=== PATIENT | male | born 1955 | race Caucasian/White ===

== ENCOUNTER 2017-04-20 20:17 | Emergency (ER) | payer MEDICARE, MEDICAID ==
[2017-04-20] MEDS ORDERED: Cephalexin CAP* 500 MG PO ONE (20:53)
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
[2017-04-20 21:22] VITALS: BP 118/83
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
== END 2017-04-20 21:45 | disposition home or self-care (01) ==
LOC: UCEAST 20:17
DX: S50.312A Abrasion of left elbow, initial encounter (principal); S46.812A Strain of other muscles, fascia and tendons at shoulder and upper arm level, left arm, initial encounter; V27.0XXA Motorcycle driver injured in collision with fixed or stationary object in nontraffic accident, initial encounter; Y93.9 Activity, unspecified; Y92.9 Unspecified place or not applicable; K40.90 Unilateral inguinal hernia, without obstruction or gangrene, not specified as recurrent; Z88.5 Allergy status to narcotic agent; Z88.1 Allergy status to other antibiotic agents; Z91.040 Latex allergy status
CPT/HCPCS: 99212; A9270-GY; G0463

== ENCOUNTER 2017-05-13 15:45 | Emergency (ER) | payer MEDICARE, MEDICAID ==
[2017-05-13] MEDS ORDERED: Silver Nitrate/Potassium Nitr* 1 EA STICK TOPICAL ONE (17:56)
--- NOTE | 2017-05-13 17:56 | UC ---
Skin Complaint HPI - HPI Summary HPI Summary: SKIN TAG ON LEFT LOWER BACK THAT HAS BEEN INFLAMED AND IRRITATED PAST FEW MONTHS. PT HAS TRIED UNSUCCESSFULLY TO FREEZE IT OFF WITH OTC WART REMOVER. STATES HE WOULD HAVE CUT IT OFF HIMSELF BUT CAN'T REACH IT. NO DRAINAGE. NO FEVER. - History of Current Complaint Chief Complaint: [facility] Time Seen by Provider: 05/13/17 17:39 Stated Complaint: INFLAMED MOLE Hx Obtained From: Patient Onset/Duration: Gradual Onset, Lasting Weeks, Still Present Timing: Constant Onset Severity: Moderate Current Severity: Moderate Pain Intensity: 0 Pain Scale Used: 0-10 Numeric Location: Discrete - LEFT LOW BACK Aggravating: Touch Alleviating: Nothing Associated Signs & Symptoms: Positive: Negative - Allergy/Home Medications Allergies/Adverse Reactions: Allergies Allergy/AdvReac Type Severity Reaction Status Date / Time Iodine Allergy Severe anaphylaxis Verified 05/04/17 08:59 Latex Allergy Severe Itching Verified 05/04/17 08:59 Codeine Allergy Mild Hives Verified 05/04/17 08:59 Erythromycin Allergy Mild Hives Verified 05/04/17 08:59 Morphine AdvReac Mild Nausea Verified 05/04/17 08:59 Review of Systems Constitutional: Negative Skin: Other - IRRITATED SKIN TAG Respiratory: Negative Cardiovascular: Negative Gastrointestinal: Negative All Other Systems Reviewed And Are Negative: Yes PMH/Surg Hx/FS Hx/Imm Hx Cardiovascular History: Hypertension Respiratory History: COPD, Asthma - Surgical History Surgical History: Yes Surgery Procedure, Year, and Place: 2010 spinal surgery (Stim); Fatty tumors removed from back, appendix, sinus and nasal surgery - Family History Known Family History: Positive: Hypertension - Social History Alcohol Use: Weekly Alcohol Amount: 4-5 drinks Substance Use Type: None Substance Use Comment - Amount & Last Used: percocet Smoking Status (MU): Never Smoked Tobacco - Immunization History Most Recent Influenza Vaccination: 2014 Most Recent Tetanus Shot: 2016 Most Recent Pneumonia Vaccination: 2015 Physical Exam Triage Information Reviewed: Yes Appearance: Well-Appearing, No Pain Distress, Well-Nourished Vital Signs: Initial Vital Signs Temp 98.7 F 05/13/17 15:54 Pulse 53 05/13/17 15:54 Resp 18 05/13/17 15:54 BP 123/89 05/13/17 15:54 Pulse Ox 97 05/13/17 15:54 Vital Signs Reviewed: Yes Eyes: Positive: Conjunctiva Clear ENT: Positive: Hearing grossly normal Neck: Positive: Supple Respiratory: Positive: No respiratory distress, No accessory muscle use Cardiovascular: Positive: Pulses Normal Abdomen Description: Positive: Soft Musculoskeletal: Positive: No Edema Neurological: Positive: Alert Psychological: Positive: Age Appropriate Behavior Skin: Positive: Other - 1CM X 0.6CM IRRITATED SKIN TAG LEFT LOW BACK Course/Dx - Course Course Of Treatment: SKIN TAG REMOVED USING SCISSORS WITHOUT DIFFICULTY. NO ANESTHESIA. HEMOSTASIS ACHIEVED WITH SILVER NITRATE STICKS. PRESSURE DRESSING APPLIED. PRIOR TO PROCEEDING ADVISED PT THAT WE COULD NOT SEND THE SPECIMEN FOR PATHOLOGY. PT CHOSE TO PROCEED STATING HE DIDN'T WANT TO DO THAT ANYWAY. - Diagnoses Provider Diagnoses: IRRITATED SKIN TAG REMOVAL Discharge - Discharge Plan Condition: Stable Disposition: HOME Referrals: Kallie Rock PA [Primary Care Provider] - If Needed Additional Instructions: YOUR SKIN TAG WAS REMOVED TODAY AND SILVER NITRATE STICKS WERE USED TO CONTROL THE BLEEDING. YOU MAY HAVE A SNEED SPOT THAT REMAINS DUE TO THE SILVER NITRATE STICKS. LEAVE THE PRESSURE DRESSING ON FOR 24 HRS. TO CLEANSE, LET WARM SOAPY WATER RUN OVER IT. DO NOT SCRUB AGGRESSIVELY. SEEK FOLLOW-UP IF YOU DEVELOP SPREADING REDNESS OF THE SKIN, PURULENT DRAINAGE, FEVER, INCREASED PAIN OR ANY OTHER CONCERNING SYMPTOMS.
[2017-05-13] MEDS ORDERED: Silver Nitrate/Potassium Nitr* 1 EA STICK ONE (18:00)
[2017-05-13 18:25] VITALS: BP 133/94
== END 2017-05-13 18:20 | disposition home or self-care (01) ==
LOC: UCEAST 15:45
DX: L91.8 Other hypertrophic disorders of the skin (principal)
CPT/HCPCS: 99211; A9270-GY; G0463

== ENCOUNTER → 2017-12-06 06:17 | Day surgery (SDC) | payer MEDICARE, MEDICAID ==
--- NOTE | 2017-11-23 14:11 | HP ---
HISTORY AND PHYSICAL: DATE OF ADMISSION/SURGERY: 12/06/17 SURGEON: Sharifa Stewart MD * (DICTATED BY SADIE GAINES) PROCEDURE: Left carpal tunnel release and ulnar nerve decompression. CHIEF COMPLAINT: Left hand pain and numbness and tingling. HISTORY OF PRESENT ILLNESS: Mr. Nicole is a 62-year-old gentleman with continued complaints of left hand numbness with intermittent pain involving the medial aspect of the elbow. He reports numbness and tingling in all the fingers. EMG/NCV test shows bilateral carpal tunnel syndrome as well as left ulnar neuropathy at the elbow. He has elected to proceed with left carpal tunnel release and ulnar nerve decompression. The surgery is scheduled for 01/[address] Stewart. PAST MEDICAL HISTORY: 1. Hypertension. 2. GERD. 3. Sleep apnea. PAST SURGICAL HISTORY: 1. Appendectomy. 2. Fatty tumor excision. 3. Right total hip arthroplasty. 4. Spinal stimulator placement. CURRENT MEDICATIONS: 1. Gabapentin 400 mg 3 times a day. 2. Oxycodone 5 mg every 8 hours as needed. 3. Flexeril 10 mg every 8 hours as needed. 4. Telmisartan 80 mg daily. 5. Amlodipine 10 mg twice a day. 6. Bystolic 20 mg daily. 7. Omeprazole 40 mg 2 tabs daily. 8. Fluticasone nasal spray. 9. Mucinex as needed. ALLERGIES: 1. CODEINE and MORPHINE causing hives. 2. ERYTHROMYCIN. 3. TAPE. 4. CT DYE. 5. LATEX. FAMILY HISTORY: Cancer and coronary artery disease. SOCIAL HISTORY: This is a 62-year-old gentleman who lives with a roommate. He does not smoke or use drugs. Uses occasional alcohol. REVIEW OF SYSTEMS: A complete 14-point review of systems was reviewed with the patient and was positive for asthma and GERD. He denies history of DVT, hepatitis C, HIV or anesthesia problems. PHYSICAL EXAMINATION GENERAL: He is well developed, well nourished, in no acute distress. VITAL SIGNS: He stands 5 feet 10 inches tall, weighs 236 pounds. Blood pressure is 120/84 and his heart rate is 62. HEENT: Normocephalic, atraumatic. NECK: Supple. No palpable lymph nodes. PULMONARY: The lungs are clear to auscultation bilaterally. CARDIAC: Regular rate and rhythm. Strong S1 and S2. ABDOMEN: Soft, nontender, and nondistended. MUSCULOSKELETAL: Left upper extremity skin is intact. There is no open wounds or abrasions. He has 2+ distal radius pulses. He has positive Tinel's at the left elbow and wrist. Positive Phalen's at the left wrist. 4+/5 senior director finance strength. He has decreased sensation over the median nerve distribution as well as the ulnar never distribution. NEUROLOGIC: He is alert and oriented x3. Cranial nerves II through XII are intact. ASSESSMENT AND PLAN: Mr. Nicole is a 62-year-old gentleman with complaints of numbness and tingling of his left hand as well as pain along the medial aspect of the left elbow. EMG studies confirm carpal tunnel syndrome and left cubital tunnel syndrome. He has elected to proceed with surgery, which is scheduled for 12/06/[address] Stewart discussed the risks and benefits of the surgery on today's visit and all of his questions were answered. He will follow up with Dr. Stewart 10 to 14 days after the surgery. SADIE GAINES [id number]/[facility] #: [id number] MADDIE
[~2017-12-06 06:17] MED LIST: Atracurium* 10 MG/ML 10 ML VIAL ONE; Buffered Lidocaine 0.9% SYRIN* 5 ML/SYR SYRINGE INTRADERM ONE; Bupivacaine 0.5%* 50 ML VIAL ONE; Dexamethasone IV* 4 MG/ML 1 ML (4 MG) IV SLOW PU ONE; Dexamethasone IV* 4 MG/ML 1 ML (4 MG) ONE; DiMENhydriNATE IV* 50 MG/ML VIAL IV PUSH PRN; EPHEDrine (Pressors)* 50 MG/ML VIAL ONE; Famotidine IV* 10 MG/ML 2 ML (20 mg) ONE; Glycopyrrolate IV* 0.2 MG/ML 1 ML VIAL ONE; HYDROmorphone INJ* 1 MG/ML CARPUJECT SYRINGE IV PRN; Lidocaine 2% PF * 5 ML VIAL ONE; Midazolam* 1 MG/ML 5 ML VIAL (5 MG) ONE; Naloxone* 0.4 MG/ML 1 ML VIAL IV PRN; Ondansetron INJ* 2 MG/ML VIAL IV PRN; Ondansetron INJ* 2 MG/ML VIAL ONE; Phenylephrine INJ* 10 MG/ML 1 ML VIAL (10 MG) ONE; Propofol* 10 MG/ML 20 ML BTL IV PUSH ONE; Scopolamine 1.5 mg* PATCH ONE; Scopolamine 1.5 mg* PATCH TRANSDERM SCH; ceFAZolin 2 GM PREMIX (*) 2 GM/50 ML BAG IVPB ONE; fentaNYL* 50 MCG/ML 2 ML VIAL (100 MCG VIAL) IV PRN; fentaNYL* 50 MCG/ML 5 ML VIAL (250 MCG VIAL) ONE; oxyCODONE/Acetamin 5/325 MG* TAB PO PRN
[2017-12-06 09:51] VITALS: BP 146/100
--- NOTE | 2017-12-07 10:46 | OP ---
OPERATIVE REPORT: DATE OF OPERATION: 12/06/17 DATE OF : 53 SURGEON: Sharifa Stewart MD CARDIAC CATH LAB MANAGER: MD Dr. Kendra Olvera did help throughout the entirety of the case for positioning of the arm, wrist, and retraction as well as wound closure. ANESTHESIOLOGIST: Stuart William MD ANESTHESIA: General. PRE-OP DIAGNOSES: Left carpal tunnel syndrome with median nerve compression at the wrist, left cubital tunnel syndrome with ulnar nerve compression at the elbow. POST-OP DIAGNOSES: Left carpal tunnel syndrome with median nerve compression at the wrist, left cubital tunnel syndrome with ulnar nerve compression at the elbow. OPERATIVE PROCEDURE: Left carpal tunnel release at the wrist, left ulnar nerve decompression at the elbow. INDICATIONS: Mr. Nicole is a 62-year-old gentleman with years of increasingly severe numbness, pain, and weakness in the left elbow and wrist. The patient's disease has been progressive. EMG/nerve conduction study confirmed both cubital tunnel with ulnar nerve compression at the elbow as well as carpal tunnel syndrome on the left with median nerve compression at the wrist. The patient reported increasing paresthesias in the ulnar 2 digits and hand weakness with lug breaker and wire puller. Due to failure of conservative treatment, the patient elected to proceed with left ulnar nerve decompression at the elbow and carpal tunnel release at the wrist. Informed consent was obtained from the patient. He understood the risks of surgery included, but were not limited to, bleeding, infection, damage to nearby structures, continued pain, continued weakness, continued paresthesias, need for further surgery, stroke, heart attack, blood clot, and . He wished to proceed. ESTIMATED BLOOD LOSS: Less than 25 cc. TOURNIQUET TIME: 32 minutes. COMPLICATIONS: None. INTRAOPERATIVE FINDINGS: Intraoperatively, the patient was noted to have severe compression of the ulnar nerve just proximal to the epicondyle. The nerve appeared to be chronically inflamed and had clearly been compressed for years. At the wrist, the median nerve had no obvious ganglion or mass associated. DESCRIPTION OF PROCEDURE: Mr. Nicole was identified in the preanesthesia unit. His left upper extremity was marked as the correct operative side. Informed consent was signed and placed in the chart. The patient was taken to the operating room and placed under general anesthesia. Left upper extremity was prepped and draped in the usual sterile fashion. Preop time-out was made to correctly identify the patient, side, and site. Appropriate perioperative antibiotics were given within 1 hour of incision. Sterile tourniquet was placed and inflated. A curvilinear incision of approximately 5 cm was centered over Reyes's ligament and extended both proximally and distally in line with the ulnar nerve. Dissection was carefully carried down using tenotomies through the subcutaneous fat and soft tissue. There was significant amount of inflammatory tissue here. Medial antebrachial cutaneous nerve was identified and protected throughout the entirety of the case. The release began just proximal to Reyes's ligament and the fascia overlying the ulnar nerve was carefully released. Next, the fascia well past the medial intermuscular septum was completely released. Reyes's ligament was identified and released as well as the superficial FCU fascia. Two edges of the FCU were also released along with the subfascial layer throughout the entirety of the ulnar nerve course distally. At this point, there was no compression of the ulnar nerve. The area was gently irrigated with sterile saline. The incision was closed using subcutaneous 2-0 Vicryls. The skin was closed using 3-0 Monocryl and Dermabond. Sterile Adaptics, 4x4s, and Webril were placed over this. Attention was next turned to the carpal tunnel release of the wrist. A 2.5-cm incision was made just ulnar to the thenar skin crease. A #15 blade was used to make the incision and tenotomies were used to dissect down to the palmar fascia. The palmar fascia was carefully split in line with the skin incision. Transverse carpal ligament was identified and a #15 blade was used to meticulously release this. Tenotomies were used to continue the release both proximal and distal. Median nerve was visualized and had no associated masses or ganglion. Once again it was noted that there was no compression proximally or distally, the wound was irrigated with sterile saline. The skin was closed using interrupted 3-0 nylon suture. Sterile Xeroform, 4x4s, and Webril were placed over this. The patient's elbow dressing was maintained as a soft, bulky dressing. A short volar plaster splint was placed along the wrist and this was covered with an Tony wrap. The patient's hand was elevated and ice was placed over this. He was taken to the PACU in stable condition. He was neurovascularly intact in the PACU with full sensation in all digits. He will follow up in the office in 2 weeks' time for dressing change and wound check. [id number]/[facility] #: [id number] MADDIE
== END | disposition home or self-care (01) ==
LOC: OR 06:17
PROVIDERS: ATTEND Orthopaedic Surgery Adult Reconstructive Orthopaedic Surgery
DX: G56.02 Carpal tunnel syndrome, left upper limb (principal); G56.22 Lesion of ulnar nerve, left upper limb; I10 Essential (primary) hypertension; K21.9 Gastro-esophageal reflux disease without esophagitis; G47.33 Obstructive sleep apnea (adult) (pediatric); F32.9 Major depressive disorder, single episode, unspecified
CPT/HCPCS: A9270-GY; J0690; J1100; J2250; J2405; J2704; J3010

== ENCOUNTER 2018-03-20 09:31 | Emergency (ER) | payer MEDICARE, MEDICAID ==
--- OUTSIDE RECORDS SUMMARY | 2018-03-20 09:41 | XMS REPORT ---
:1955 External Reference #:[id number] Author Organization [facility] Address [address] [facility] [address] [place] [address] [place] [address] Phone [phone] Care Team Providers Name Role Phone Stef Rock RPA Primary Care Physician Unavailable Payers Type Date Identification Numbers Payment Provider Subscriber Health Maintenance Policy Number: [facility] Medicare [place] Deevn Corey Meño (HMO) [id number] Solutions Group Number: [id number] [address] [address] PayID: [id number] [place] [address] [facility] Policy Number: [id number] Medicaid [place] Nicole Group Name: 1 1 [address] PayID: [id number] [place] [address] Problems Date Description Provider Status Onset: 06/28/2015 Localized, primary osteoarthritis of the Sharifa Stewart M.D. Active pelvic region and thigh Onset: 12/21/2015 Obstructive sleep apnea syndrome Estephania Fair MD Active Onset: 12/21/2015 Secondary polycythemia Estephania Fair MD Active Onset: 02/21/2016 Central sleep apnea syndrome Estephania Fair MD Active Onset: 07/09/2017 Prosthetic arthroplasty of the hip Sharifa Stewart M.D. Active Onset: 09/28/2017 Disorder of shoulder Sharifa Stewart M.D. Active Onset: 09/28/2017 Localized, primary osteoarthritis of the Sharifa Stewart M.D. Active shoulder region Onset: 09/28/2017 Carpal tunnel syndrome of right wrist Sharifa Stewart M.D. Active Onset: 09/28/2017 Carpal tunnel syndrome of left wrist Sharifa Stewart M.D. Active Onset: 03/01/2018 Current tear of medial cartilage AND/OR Sharifa Stewart M.D. Active meniscus of knee Family History Date Family Member(s) Problem(s) Comments General Heart Disease General Cancer General Lung Cancer General Brain Cancer Social History Type Date Description Comments Marital Status Single Lives With friend Occupation Disabled back problems stemming from a lifting incident at work 2002 Cigarette Use Never Smoked Cigarettes ETOH Use Occasionally consumes alcohol Smoking Patient has never smoked Recreational Drug Use Denies Drug Use Daily Caffeine Consumes on average 3 cups of regular coffee per day Exercise Type/Frequency Does not exercise Allergies, Adverse Reactions, Alerts Date Description Reaction Status Severity Comments 06/28/2015 Codeine active 06/28/2015 Morphine active 12/21/2015 Erythromycin active 04/21/2016 Tape active hives 04/21/2016 CT Dye active 04/23/2017 Latex active Medications Medication Date Status Form Strength Qnty SIG Indications Ordering Provider Gabapentin 11/16 Active Capsules 400mg 1 by mouth three times a day Oxycodone HCL 08/26 Active Capsules 5mg 30cap 1-2 tab by Aris Anna s mouth every Xiomara, 8 hours as M.D. 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 Telmisartan Active 80mg 1 tab by Unknown /0000 mouth daily Amlodipine Active 10mg 1 tab by Unknown Besylate twice a day Bystolic Active 20mg 1 tab daily Unknown / Omeprazole Active 40mg 2 tabs by Unknown /0000 mouth daily Fluticasone Active 50mcg 2 sprays Unknown Propionate twice daily Mucinex Active Tablets 600mg 120ta 2 By Mouth Aris EFlorencio / ER 12HR bs Twice a Day Xiomara, As Needed M.D. for sputum Simethicone 05/24 Hx Capsules 180mg 90cap tab by Estephania s mouth every MD Marv - 6 hours as 05/15 Hydrocodone-Aceta 05/15 Hx Tablets 5-325mg Aris frausto Elvin Solano M.D. 02/18 Amoxicillin 04/24 Hx Capsules 500mg 12cap 4 tablets 1 Jessica s hour before Bordoni, - dental SWEEP PRESS OPERATOR 05/15 invasive gi or gu procedures Oxymorphone HCL 08/13 Hx Tablets 10mg 14tab 1 by mouth s twice a day Cyril, - M.D. 10/24 Oxycodone HCL 08/05 Hx Tablets 5mg 120ta 1-2 by bs mouth every Terry, - 4 hours M.D. 10/24 Oxycontin 08/05 Hx Tab ER 10mg 40tab 1 tab by 12H s mouth twice Terry, - Abuse-Det a day M.D. 08/13 Colace 08/05 Hx Capsules 100mg 60cap 1 by mouth s three times Terry, - a day M.D. 10/24 Coumadin 08/05 Hx Tablets 2mg 90tab 1 or 2 tabs s as directed Terry, - at 5pm M.D. 10/24 Erythromycin 00/00 Hx Unknown /0000 - 12/19 Hydrocodone-Aceta 0000 Hx 7.5/325 Unknown minophen /0000 - 05/15 Oxycontin 00/00 Hx 5mg Unknown /0000 - 08/05 Keflex 00 Hx Capsules 500mg 1 tab by Unknown /0000 mouth four - times a day 05/08 Medications Administered in Office Medication Date Status Form Strength Qnty SIG Indications Ordering Provider Depomedrol Administered Injection Sharifa 40MG 018 Wilfrid Stewart Depomedrol Administered Injection Sharifa 40MG 018 Wilfrid Stewart Depomedrol Administered Injection Sharifa 40MG 017 Wilfrid Stewart Immunizations CPT Code Status Date Vaccine Lot # [id number] Given 04/20/2017 Influenza Virus Vaccine, Quadrivalent, Split, Preservative Free 12451 Given 06/04/2016 Influenza Virus Vaccine, Quadrivalent, Split, Preservative Free 96882 Given 06/04/2016 Pneumococcal Conjugate Vaccine 13 Valent For Intramuscular Use [id number] Given 05/27/2015 Pneumococcal Conjugate Vaccine 13 Valent For Intramuscular Use Vital Signs Date Vital Result Comment 03/01/2018 Height 70 inches 5'10" Weight 232.00 lb BP Systolic 124 mmHg BP Diastolic 80 mmHg Body Temperature 97.8 F Pain Level 2 BMI (Body Mass Index) 33.3 kg/m2 01/16/2018 Height 70 inches 5'10" Weight 234.00 lb Heart Rate 48 /min BP Systolic 150 mmHg BP Diastolic 100 mmHg Body Temperature 97.0 F Pain Level 5 BMI (Body Mass Index) 33.6 kg/m2 12/19/2017 Height 70 inches 5'10" Weight 234.00 lb Heart Rate 49 /min BP Systolic 142 mmHg BP Diastolic 82 mmHg Body Temperature 96.6 F BMI (Body Mass Index) 33.6 kg/m2 12/14/2017 Height 70 inches 5'10" Heart Rate 76 /min BP Systolic 130 mmHg BP Diastolic 74 mmHg Respiratory Rate 16 /min Body Temperature 98.0 F Pain Level 3 11/23/2017 Height 70 inches 5'10" Weight 236.00 lb Heart Rate 60 /min BP Systolic 120 mmHg BP Diastolic 84 mmHg BMI (Body Mass Index) 33.9 kg/m2 11/13/2017 Height 70 inches 5'10" Weight 232.00 lb Heart Rate 46 /min BP Systolic Sitting 144 mmHg Rue large cuff BP Diastolic Sitting 92 mmHg Rue large cuff Respiratory Rate 16 /min O2 % BldC Oximetry 96 % On Ra BMI (Body Mass Index) 33.3 kg/m2 10/31/2017 Height 70 inches 5'10" Weight 213.00 lb Heart Rate 60 /min BP Systolic 130 mmHg BP Diastolic 88 mmHg BMI (Body Mass Index) 30.6 kg/m2 10/10/2017 Height 70 inches 5'10" Weight 241.00 lb BP Systolic 130 mmHg BP Diastolic 90 mmHg Body Temperature 97.6 F Pain Level 5 BMI (Body Mass Index) 34.6 kg/m2 09/28/2017 Height 70 inches 5'10" Weight 244.00 lb BP Systolic 140 mmHg BP Diastolic 84 mmHg Body Temperature 98.0 F BMI (Body Mass Index) 35.0 kg/m2 07/09/2017 Height 70 inches 5'10" Weight 235.00 lb Heart Rate 50 /min BP Systolic 119 mmHg BP Diastolic 78 mmHg BMI (Body Mass Index) 33.7 kg/m2 05/16/2017 Height 70 inches 5'10" Weight 242.12 lb Heart Rate 48 /min BP Systolic Sitting 102 mmHg BP Diastolic Sitting 58 mmHg Respiratory Rate 14 /min Pain Level 5 Back and neck pain O2 % BldC Oximetry 92 % BMI (Body Mass Index) 34.7 kg/m2 05/09/2017 Height 70 inches 5'10" Weight 245.00 lb Heart Rate 48 /min BP Systolic 105 mmHg BP Diastolic 68 mmHg Body Temperature 97.8 F Pain Level 10 BMI (Body Mass Index) 35.1 kg/m2 04/23/2017 Height 70 inches 5'10" Weight 240.00 lb Heart Rate 68 /min BP Systolic 136 mmHg BP Diastolic 90 mmHg Respiratory Rate 18 /min Body Temperature 97.7 F BMI (Body Mass Index) 34.4 kg/m2 02/19/2017 Height 69 inches 5'9" Weight 244.00 lb Heart Rate 50 /min BP Systolic Sitting 112 mmHg BP Diastolic Sitting 70 mmHg Respiratory Rate 16 /min O2 % BldC Oximetry 95 % room air BMI (Body Mass Index) 36.0 kg/m2 11/17/2016 Height 69 inches 5'9" Weight 229.00 lb Heart Rate 50 /min BP Systolic 126 mmHg BP Diastolic 80 mmHg Respiratory Rate 14 /min O2 % BldC Oximetry 95 % BMI (Body Mass Index) 33.8 kg/m2 04/21/2016 Height 69 inches 5'9" Weight 229.00 lb Heart Rate 54 /min BP Systolic Sitting 130 mmHg BP Diastolic Sitting 94 mmHg Body Temperature 96.9 F O2 % BldC Oximetry 94 % BMI (Body Mass Index) 33.8 kg/m2 04/18/2016 Height 70 inches 5'10" Weight 210.00 lb Heart Rate 72 /min BP Systolic 128 mmHg BP Diastolic 78 mmHg Respiratory Rate 14 /min O2 % BldC Oximetry 95 % BMI (Body Mass Index) 30.1 kg/m2 02/21/2016 Height 70 inches 5'10" Weight 210.00 lb Heart Rate 64 /min BP Systolic 132 mmHg BP Diastolic 74 mmHg Respiratory Rate 14 /min O2 % BldC Oximetry 98 % BMI (Body Mass Index) 30.1 kg/m2 12/21/2015 Height 70 inches 5'10" Weight 210.00 lb Heart Rate 58 /min BP Systolic 128 mmHg BP Diastolic 86 mmHg Respiratory Rate 14 /min O2 % BldC Oximetry 95 % BMI (Body Mass Index) 30.1 kg/m2 Neck Circumference in inches 17 10/25/2015 Height 70 inches 5'10" Weight 210.00 lb Pain Level 1 BMI (Body Mass Index) 30.1 kg/m2 09/13/2015 Height 70 inches 5'10" Weight 210.00 lb Pain Level 3 BMI (Body Mass Index) 30.1 kg/m2 08/18/2015 Height 70 inches 5'10" Weight 210.00 lb Body Temperature 96.8 F BMI (Body Mass Index) 30.1 kg/m2 08/13/2015 Height 70 inches 5'10" Weight 210.00 lb Pain Level 6 -04/12 BMI (Body Mass Index) 30.1 kg/m2 07/21/2015 Height 70 inches 5'10" Weight 210.00 lb Heart Rate 49 /min BP Systolic 136 mmHg BP Diastolic 88 mmHg BMI (Body Mass Index) 30.1 kg/m2 06/28/2015 Height 70 inches 5'10" Weight 210.00 lb Heart Rate 45 /min BP Systolic 129 mmHg BP Diastolic 89 mmHg BMI (Body Mass Index) 30.1 kg/m2 Results Test Date Test Result H/L Range Note Comp Metabolic Panel 04/24/2016 Sodium 140 mmol/L 133-145 Potassium 3.8 mmol/L 3.5-5.0 Chloride 107 mmol/L 101-111 Co2 Carbon Dioxide 26 mmol/L 22-32 Anion Gap 7 mmol/L 2-11 Glucose 95 mg/dL 70-100 Blood Urea Nitrogen 15 mg/dL 6-24 Creatinine 0.86 mg/dL 0.67-1.17 BUN/Creatinine Ratio 17.4 8-20 Calcium 9.1 mg/dL 8.6-10.3 Total Protein 6.6 g/dL 6.4-8.9 Albumin 4.1 g/dL 3.2-5.2 Globulin 2.5 g/dL 2-4 Albumin/Globulin Ratio 1.6 1-3 Total Bilirubin 0.80 mg/dL 0.2-1.0 Alkaline Phosphatase 87 U/L 34-104 Alt 17 U/L 7-52 Ast 21 U/L 13-39 Egfr Non- 90.4 >60 Egfr 116.3 >60 1 Lipid Profile (Trig/Chol/HDL) 04/24/2016 Triglycerides 409 mg/dL 2 Cholesterol 153 mg/dL 3 HDL Cholesterol 24.6 mg/dL 4 LDL Cholesterol (SEE NOTE) mg/dL 5 Laboratory test finding 04/24/2016 Hepatitis C Antibody Nonreactive Nonreactive 6 Laboratory test finding 10/14/2015 PSA Screening 1.517 ng/mL 0-4.0 7 CBC No Diff 07/21/2015 White Blood Count 5.9 10^3/uL 4.8-10.8 Red Blood Count 5.99 10^6/uL High 4.0-5.4 Hemoglobin 18.9 g/dL High 14.0-18.0 Hematocrit 56 % High 42-52 Mean Corpuscular Volume 94 fL 80-94 Mean Corpuscular Hemoglobin 32 pg High 27-31 Mean Corpuscular HGB Conc 34 g/dL 31-36 Red Cell Distribution Width 14 % 10.5-15 Platelet Count 132 10^3/uL Low 150-450 Mean Platelet Volume 9 um3 7.4-10.4 Urinalysis Profile 07/21/2015 Urine Color Yellow Urine Appearance Clear Urine Specific [place] 1.018 1.010-1.030 Urine pH 6.0 5-9 Urine Urobilinogen Negative Negative Urine Ketones Negative Negative Urine Protein Negative Negative Urine Leukocytes Negative Negative Urine Blood 1+ Negative Urine Nitrite Negative Negative Urine Bilirubin Negative Negative Urine Glucose Negative Negative Urine White Blood Cell Trace(0-5/hpf) Absent Urine Red Blood Cell 2+(6-10/hpf) Absent Urine Bacteria Absent Absent Inr/Protime 07/21/2015 Inr 1.03 0.89-1.11 8 Laboratory test finding 07/21/2015 Partial Thrombo Time 34.9 seconds 26.0 -36.3 PTT Urine Culture And Sensitivities SEE RESULT BELOW 9 Type & Screen 07/21/2015 Antibody Screen NEGATIVE Patient Blood Type A Positive 1 Because ethnic data is not always readily available, this report includes an eGFR for both -Americans and non- Americans. The National Kidney Disease Education Program (NKDEP) does not endorse the use of the MDRD equation for patients that are not between the ages of 18 and 70, are , have extremes of body size, muscle mass, or nutritional status, or are non- or non-. According to the National Kidney Foundation, irrespective of diagnosis, the stage of the disease is based on the level of kidney function: Stage Description GFR(mL/min/1.73 m(2)) 1 Kidney damage with normal or decreased GFR 90 2 Kidney damage with mild decrease in GFR 60-89 3 Moderate decrease in GFR 30-59 4 Severe decrease in GFR 15-29 5 Kidney failure <15 (or dialysis) 2 Desirable <150 Borderline high 150-199 High 200-499 Very High >500 3 Desirable <200 Borderline high 200-239 High >239 4 Low <40 Desirable: 40-60 High: >60 5 Unable to calculate LDL as triglyceride is > 400 6 FASTING 10 HOUR 7 Serum levels of PSA measured using the Kieran Cheng DXI Hybritech immunoassay should not be interpreted as absolute evidence of the presence or absence of disease. The PSA value should be used in conjunction with other pertinent clinical diagnostic procedures. The values obtained with different assay methods or kits cannot be used interchangeably. 8 Effective immediately, due to a laboratory mean normal Protime change, the reference range for the INR has changed. 9 SEE RESULT BELOW Name: MILAN NICOLE : [address]: Sharifa Stewart MD Acct: [id number] Unit: [id number] AGE: 59 Location: [facility] Re07/21/15 SEX: M Status: REG REF SPEC: [id number] CHANDANA: 07/21/15 [facility] DR: Sharifa Stewart MD REQ: [id number] RECD: 07/21/15 STATUS: JANETH ZAVALETA DR: Kallie Rock PA _ SOURCE: URINE SPDESC: ORDERED: Urine Culture QUERIES: Urine Source: Clean Catch Procedure Result Verified Site Urine Culture Final 07/23/15- 1041 ML No Growth Day 2 (<1,000 CFU/mL) * ML - MAIN LAB (PSC1) . END OF REPORT * ML=Testing performed at Main Lab DEPARTMENT OF PATHOLOGY, [address] [place] [address] Jeremie Best M.D. Director [facility] # [id number] Procedures Date CPT Code Description Status 03/01/2018 Inject/Drain Joint/Bursa Major W/O US Completed 12/06/2017 56178 Carpal Tunnel Release Completed 12/06/2017 09751 Neuroplasty &/Or Transposition; Ulnar Nerve AT Elbow Completed 12/06/201743231 Neuroplasty &/Or Transposition; Ulnar Nerve AT Elbow Completed 10/10/2017 Inject/Drain Joint/Bursa Major W/O US Completed 09/28/2017 Inject/Drain Joint/Bursa Intermediate W/O US Completed 05/09/2017 Inject/Drain Joint/Bursa Major W/O US Completed 04/04/2016 62650 Polysomnography Sleep Staging 4+ Parameters W/Cpap Completed 02/03/2016 86769 Polysomnography Sleep Staging 4+ Parameters W/Cpap Completed 08/03/201588966 THR Total Hip Replacement Completed 08/03/201513276 THR Total Hip Replacement Completed 07/23/2007 44225 EKG, Interpretation Only Completed Encounters Type Date Location Provider CPT E/M Dx Office Visit 03/01/2018 [facility] Sharifa Stewart M.D. 29516 M25.562 9:15a [facility] M25.462 S83.242A Office Visit 11/13/2017 11:00a [facility] Sleep Sherrell Gauthier 56281 G47.33 Services Of Sony RANDALL RN, NNEKA-JESÚS Office Visit 10/31/2017 9:30a [facility] Sharifa Stewart M.D. 43073 G56.01 [facility] G56.02 M75.41 M19.011 G56.21 G56.22 M25.511 Office Visit 10/10/2017 11:15a [facility] Sharifa Stewart M.D. 43509 M19.012 [facility] M19.011 M75.41 M75.42 M25.511 G56.01 G56.02 M54.2 M25.512 Office Visit 09/28/2017 8:00a [facility] Sharifa Stewart M.D. 53415 M25.511 [facility] M75.41 M19.011 G56.01 G56.02 M54.2 Office Visit 07/09/2017 8:45a [facility] Of Sharifa Stewart M.D. 20370 M25.551 [facility] Z96.641 M54.5 Office Visit 05/16/2017 11:15a [facility] Sherrell Gauthier 45292 G47.37 Services Of Sony RANDALL RN, NNEKA-JESÚS G47.33 Office Visit 05/09/2017 10:00a [facility] Of Sharifa Stewart M.D. 48971 Z96.641 [facility] M70.61 Office Visit 04/23/2017 11:15a [facility] [place], [address] R10.31 [facility] FACS Office Visit 02/19/2017 11:30a Pul[facility]ology And Sleep Sherrell Gauthier, 71205 G47.37 Services Of [facility] ROBERT RANDALL, SILICA DRY PRESS HELPER-BC G47.33 Office Visit 11/17/2016 11:30a Pul[facility]ology And Sleep Sherrell Gauthier, 73339 G47.33 Services Of [facility] ROBERT RANDALL, SILICA DRY PRESS HELPER-BC G47.37 Z98.890 Office Visit 04/21/2016 9:20a [facility] Internal Medicine - Aris Solano, 81572 I10 Liat Yuen G47.37 D75.1 M54.5 K21.9 Z13.220 Z11.59 R31.9 Office Visit 04/18/2016 1:00p Pul[facility]ology [place] [address] G47.33 Services Of [facility] G47.37 D75.1 Office Visit 02/21/2016 10:45a [facility] [place] [address] G47.33 Services Of [facility] G47.37 Office Visit 12/21/2015 11:00a [facility] [place] [address] G47.33 Services Of [facility] D75.1 Office Visit 06/28/2015 8:00a [facility] Of Sharifa Stewart M.D. 35379 M16.11 [facility] M25.551 Office Visit 07/19/2009 9:30a [facility]surgery Services Of Emerson Casas, 94392 724.2 Sony Yuen Plan of Care Future Appointment(s):03/13/2018 10:00 am - Sharifa Stewart M.D. at [facility]05/20/2018 9:00 am - Sherrell Gauthier DNP, RN, SILICA DRY PRESS HELPER- at [facility] Sleep [facility] Of [facility]03/01/2018 - Sharifa Stewart M.D.M25.562 Pain in left kneeFollow up:Follow up: 2 nxpthG89.462 Effusion, left kneeS83.242A Oth tear of medial meniscus, current injury, left knee, init
[2018-03-20 09:54] VITALS: BP 139/104
[2018-03-20] MEDS ORDERED: Lidocaine 1% MPF* 2 ML VIAL INJ ONE (10:33)
[2018-03-20] MEDS ORDERED: Lidocaine 1%* 5 ML VIAL ONE (10:39)
--- NOTE | 2018-03-20 11:42 | ED ---
Laceration/Wound HPI - HPI Summary HPI Summary: Pt. is a 62-year-old male who presents to the urgent care numerous small lacerations to second digit of left hand that occurred just prior to arrival. 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 States his last tetanus immunization was within 5 years. Symptoms are mild in severity. Touching wound makes symptoms worse. Rest makes symptoms better. No other injuries were sustained. - History of Current Complaint Stated Complaint: CUT FINGER Time Seen by Provider: 03/20/18 10:04 Hx Obtained From: Patient Pain Intensity: 2 Pain Scale Used: 0-10 Numeric - Additional Pertinent History Primary Care Physician: [id number] - Allergy/Home Medications Allergies/Adverse Reactions: Allergies Allergy/AdvReac Type Severity Reaction Status Date / Time iodine Allergy Severe Anaphylatic Verified 03/20/18 09:40 Shock codeine Allergy Intermediate Hives Verified 03/20/18 09:40 erythromycin base Allergy Intermediate Hives Verified 03/20/18 09:40 latex Allergy Mild Itching Verified 03/20/18 09:40 Adhesive Tape [Plastic Tape] Allergy Rash Verified 03/20/18 09:40 morphine AdvReac Mild Nausea Verified 03/20/18 09:40 SEAFOOD Allergy Hives Uncoded 03/20/18 09:40 Home Medications: Home Medications guaiFENesin [Mucinex] 600 mg PO BID 03/20/18 [History Confirmed 03/20/18] PMH/Surg Hx/FS Hx/Imm Hx Previously Healthy: Yes Endocrine/Hematology History: Denies: Hx Diabetes, Hx Thyroid Disease Cardiovascular History: Reports: Hx Hypertension Respiratory History: Reports: Hx Asthma, Hx Chronic Bronchitis, Hx Chronic Obstructive Pulmonary Disease (COPD), Hx Seasonal Allergies, Hx Sleep Apnea GI History: Reports: Hx Gastroesophageal Reflux Disease - WELL CONTROLLED, Hx Gastrointestinal Bleed Denies: Hx Ulcer History: Reports: Other Problems/Disorders - 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 right hip replacement 2 years ago (gwen) Hx Anesthesia Reactions: No Infectious Disease History: No Infectious Disease History: Reports: Hx Hepatitis, Hx Shingles Denies: Hx Clostridium Difficile, Hx Human Immunodeficiency Virus (HIV), Hx of Known/Suspected MRSA, Hx Tuberculosis, Hx Known/Suspected VRE, Hx Known/ Suspected VRSA, Traveled Outside the [place] in Last 30 Days - Family History Known Family History: Positive: Hypertension - Social History Occupation: Disabled Lives: Alone Alcohol Use: Weekly Alcohol Amount: 3 or less per week Substance Use Type: Reports: None Substance Use Comment - Amount & Last Used: percocet Smoking Status (MU): Former Smoker Have You Smoked in the Last Year: No Review of Systems Positive: Other - Finger laceration 2nd digit left hand Negative: Weakness, Paresthesia, Numbness All Other Systems Reviewed And Are Negative: Yes Physical Exam Triage Information Reviewed: Yes Vital Signs On Initial Exam: Initial Vitals Temp Pulse Resp BP Pulse Ox 97.7 F 51 18 139/104 99 03/20/18 09:43 03/20/18 09:43 03/20/18 09:43 03/20/18 09:43 03/20/18 09:43 Vital Signs Reviewed: Yes Appearance: Positive: Well-Appearing - Pt. sitting on exam table in NAD. Skin: Positive: Warm Head/Face: Positive: Normal Head/Face Inspection Eyes: Positive: Normal Neck: Positive: Supple Musculoskeletal: Positive: Other - 3 lacerations noted to the proximal aspect of the 2nd digit of left hand. The most proximal two wounds are 1.5cm in length and the distal wound is 1cm in length. Few small superifical wounds noted to distal hand. Full ROM of the 2nd digit with flexion and extension. No bony tenderness. Minimal acitive bleeding. Hand is dirty. Neurological: Positive: Normal, CN Intact II-III Psychiatric: Positive: Affect/Mood Appropriate Procedures - Laceration/Wound Repair 1 Location: upper extremity, Other - 2nd finger of left hand Description: Linear Anesthesia: Local, 1.0% - 2cc Length, Depth and Shape: 1.5cm linear full thickness. Betadine Prep?: No - Hibiclens Laceration/Wound Explored: contaminated Closure: Single Layer Suture Type: Nylon - 4-0 Number of Sutures: 3 Layer Closure?: No Sterile Dressing Applied?: Yes 2 Location: upper extremity - 2nd digit of left hand Description: Linear Anesthesia: Local, 1.0% - 2cc Length, Depth and Shape: 1.5cm linear Betadine Prep?: No - hibiclens Laceration/Wound Explored: contaminated Closure: Single Layer Suture Type: Nylon - 4-0 Number of Sutures: 3 Layer Closure?: No Sterile Dressing Applied?: Yes 3 Location: upper extremity - 2nd digit left hand Description: Linear Anesthesia: Local, 1.0% - 1cc Length, Depth and Shape: 1cm linear Betadine Prep?: No - hibiclens Laceration/Wound Explored: contaminated Closure: Single Layer Suture Type: Nylon - 4-0 Number of Sutures: 2 Layer Closure?: No Sterile Dressing Applied?: Yes Diagnostics - Vital Signs Vital Signs Temp Pulse Resp BP Pulse Ox 03/20/18 09:43 97.7 F 51 18 139/104 99 - Laboratory Lab Statement: Any lab studies that have been ordered have been reviewed, and results considered in the medical decision making process. Laceration Repair Course/Dx - Course Course Of Treatment: Presenting to urgent care for numerous, small lacerations to left index finger. Tetanus is up-to-date. Lacerations repaired as noted above. Will prophylactically treat with Keflex given dirty wound. Suture removal in 7-10 days. Return to UC or go to ED for redness, swelling or drainage from wound site. Pt. understands and agrees with plan. - Differential Dx Differental Diagnoses: Abscess, Avulsion, Foreign Body, Laceration, Puncture Wound, Tendon Laceration - Clinical Impression Provider Diagnoses: Finger laceration Discharge - Sign-Out/Discharge Documenting (check all that apply): Patient Departure - Discharge Plan Condition: Good Disposition: HOME Prescriptions: Cephalexin CAP* [Keflex CAP*] 500 mg PO BID #20 cap Patient Education Materials: Care For Your Stitches (ED), Laceration (ED) Referrals: Kallie Rock PA [Primary Care Provider] - Additional Instructions: Suture removal in 7-10 days Keep wound clean and dry Take antibiotic as directed Tylenol for pain as directed Return to UC or go to ER for redness, swelling or drainage from wound - Billing Disposition and Condition Condition: GOOD Disposition: Home
== END 2018-03-20 11:33 | disposition home or self-care (01) ==
LOC: UCEAST 09:31
DX: S61.211A Laceration without foreign body of left index finger without damage to nail, initial encounter (principal); J45.909 Unspecified asthma, uncomplicated; I10 Essential (primary) hypertension; E11.9 Type 2 diabetes mellitus without complications; Z88.8 Allergy status to other drugs, medicaments and biological substances; Z88.5 Allergy status to narcotic agent; Z88.1 Allergy status to other antibiotic agents; Z91.040 Latex allergy status; Z91.013 Allergy to seafood; Z91.048 Other nonmedicinal substance allergy status; Z87.891 Personal history of nicotine dependence; W31.2XXA Contact with powered woodworking and forming machines, initial encounter; Y92.9 Unspecified place or not applicable
CPT/HCPCS: 12001; 99212; G0463

== ENCOUNTER 2018-05-18 15:48 | Emergency (ER) | payer MEDICARE, MEDICAID ==
--- OUTSIDE RECORDS SUMMARY | 2018-05-18 15:55 | XMS REPORT ---
:1955 External Reference #:[id number] Author Organization [employer] Address [address] [place] [address] Phone [phone] Care Team Providers Name Role Phone Stef Rock RPA Primary Care Physician Unavailable Payers Type Date Identification Numbers Payment Provider Subscriber Health Maintenance Policy Number: [facility] Medicare Milan Wilder (HMO) [id number] Solutions Group Number: [id number] [address] [address] PayID: [id number] [place] [address] [place] Policy Number: [id number] Medicaid Milan Nicole Group Name: 1 1 [address] PayID: [id number] [place] [address] Problems Date Description Provider Status Onset: 06/28/2015 [...] Current tear of medial cartilage AND/OR Sharifa Terry, M.D. 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 Telmisartan Active 80mg 1 tab by Unknown /0000 mouth daily Amlodipine Active 10mg 1 tab by Unknown Besylate twice a day Bystolic Active 20mg 1 tab daily Unknown / Omeprazole Active 40mg 2 tabs by Unknown /0000 mouth daily Fluticasone Active 50mcg 2 sprays Unknown Propionate twice daily Mucinex Active Tablets 600mg 120ta 2 By Mouth Aris EFlorencio ER 12HR bs Twice a Day Xiomara, As Needed M.D. for sputum Simethicone 05/24 Hx Capsules 180mg 90cap tab by Estephania s mouth every MD Marv - 6 hours as 05/15 Hydrocodone-Aceta 05/15 Hx Tablets 5-325mg Aris frausto Elvin Solano M.D. 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 Depomedrol Administered Injection Sharifa 40MG Seth Stewart M.D. Depomedrol Administered Injection Sharifa 40MG 018 Wilfrid Stewart Depomedrol Administered Injection Sharifa 40MG 017 Wilfrid Stewart Immunizations CPT Code Status Date Vaccine Lot # 56500 Given 04/20/2017 Influenza Virus Vaccine, Quadrivalent, Split, Preservative Free 98626 Given 06/04/2016 Influenza Virus Vaccine, Quadrivalent, Split, Preservative Free 02430 Given 06/04/2016 Pneumococcal Conjugate Vaccine 13 Valent For Intramuscular Use 94966 Given 05/27/2015 Pneumococcal Conjugate Vaccine 13 Valent For Intramuscular Use Vital Signs Date Vital Result Comment 04/19/2018 Height 70 inches 5'10" Heart Rate 78 /min BP Systolic 142 mmHg BP Diastolic 80 mmHg Respiratory Rate 17 /min Body Temperature 98.0 F Pain Level 5 03/01/2018 Height 70 inches 5'10" Weight 232.00 [...] Color Yellow Urine Appearance Clear Urine Specific [place] 1.018 1.010-1.030 Urine pH 6.0 5-9 Urine [...] [address]: Sharifa Stewart MD Acct: [id number] Unit: [id number] AGE: 59 Location: [facility] Re07/21/15 SEX: M Status: REG REF SPEC: [id number] CHANDANA: 07/21/15-[address]: Sharifa Stewart MD REQ: [id number] RECD: 07/21/15 STATUS: COMP OTHR DR: Kallie Rock PA _ SOURCE: URINE SPDESC: ORDERED: Urine Culture QUERIES: Urine Source: Clean Catch Procedure Result Verified Site Urine Culture Final 07/23/15- 1041 ML No Growth Day 2 (<1,000 CFU/mL) * ML - MAIN LAB ([facility]) . END OF REPORT * ML=Testing performed at Main Lab DEPARTMENT OF PATHOLOGY, [address] [place] [address] Jeremie Best M.D. Director [facility] # [id number] Procedures Date CPT Code Description Status 04/19/2018 Inject/Drain Joint/Bursa Major W/O US Completed 03/01/2018 Inject/Drain Joint/Bursa Major W/O US Completed 12/06/2017 19932 Carpal Tunnel Release Completed 12/06/2017 11906 Neuroplasty &/Or Transposition; Ulnar Nerve AT Elbow Completed 12/06/2017 97269 Neuroplasty &/Or Transposition; Ulnar Nerve AT Elbow Completed 10/10/2017 Inject/Drain Joint/Bursa Major W/O US Completed 09/28/2017 Inject/Drain Joint/Bursa Intermediate W/O US Completed 05/09/2017 Inject/Drain Joint/Bursa Major W/O US Completed 04/04/2016 89071 Polysomnography Sleep Staging 4+ Parameters W/Cpap Completed 02/03/2016 10655 Polysomnography Sleep Staging 4+ Parameters W/Cpap Completed 08/03/201580483 THR Total Hip Replacement Completed 08/03/201589143 THR Total Hip Replacement Completed 07/23/2007 19404 EKG, Interpretation Only Completed Encounters Type Date Location Provider CPT E/M Dx Office Visit 03/01/2018 Orthopedic Services Sharifa Stewart M.D. 57376 M25.562 9:15a Of [facility] M25.462 S83.242A X50.9xxA Office Visit 11/13/2017 11:00a Pul[facility]ology And Sleep Sherrell Gauthier, 17717 G47.33 Services Of Sony RANDALL RN, LUGGAGE REPAIRER-BC Office Visit 10/31/2017 9:30a [facility] Of Sharifa Stewart M.D. 44510 G56.01 C.[facility].A. G56.02 M75.41 M19.011 G56.21 G56.22 M25.511 Office Visit 10/10/2017 11:15a [facility] Of Sharifa Stewart M.D. 86084 M19.012 C.[facility]A. M19.011 M75.41 M75.42 M25.511 G56.01 G56.02 M54.2 M25.512 Office Visit 09/28/2017 8:00a [facility] Of Sharifa Stewart M.D. 96149 M25.511 C.[facility].A. M75.41 M19.011 G56.01 G56.02 M54.2 Office Visit 07/09/2017 8:45a [facility] Of Sharifa Stewart M.D. 25859 M25.551 C.M.A. Z96.641 M54.5 Office Visit 05/16/2017 11:15a [facility] Sherrell Gauthier, 25820 G47.37 Services Of [facility] ROBERT RANDALL, [facility]-BC G47.33 Office Visit 05/09/2017 10:00a [facility] Of Sharifa Stewart M.D. 31669 Z96.641 CFlorencioMRhona M70.61 Office Visit 04/23/2017 11:15a [facility] [place], [address] R10.31 [facility] FACS Office Visit 02/19/2017 11:30a [facility] Sleep Sherrell Gauthier, 30666 G47.37 Services Of [facility] ROBERT RANDALL, [facility]- G47.33 Office Visit 11/17/2016 11:30a [facility] Sleep Sherrell Gauthier, 79519 G47.33 Services Of [facility] ROBERT RANDALL, [facility]- G47.37 Z98.890 Office Visit 04/21/2016 9:20a [facility] Internal Medicine - Aris Solano, 58196 I10 Liat Yuen G47.37 D75.1 M54.5 K21.9 Z13.220 Z11.59 R31.9 Office Visit 04/18/2016 1:00p [facility] [place] [address] G47.33 Services Of [facility] G47.37 D75.1 Office Visit 02/21/2016 10:45a [facility] [place] [address] G47.33 Services Of [facility] G47.37 Office Visit 12/21/2015 11:00a [facility] [place] [address] G47.33 Services Of [facility] D75.1 Office Visit 06/28/2015 8:00a [facility] Of Sharifa Stewart M.D. 38237 M16.11 C.MRhona M25.551 Office Visit 07/19/2009 9:30a Neurosurgery Services Of Emerson Casas, 07260 724.2 Sony Yuen Plan of Care Future Appointment(s):07/22/2018 9:00 am - Sharifa Stewart M.D. at [facility] Of C.MFlorencioA.04/22/2018 3:00 pm - Sharifa Stewart M.D. at [facility] Of C.M.A.05/20/2018 9:00 am - Sherrell Gauthier DNP, RN, LUGGAGE REPAIRER-BC at Pulmonology And Sleep Services [facility]04/19/2018 - Sharifa Stewart M.D.M25.511 Pain in right shoulderFollow up:Follow up: 3 iayoswZ67.512 Pain in left gtvnvocgP43.011 Primary osteoarthritis, right smlayfqvG00.012 Primary osteoarthritis, left shoulder
--- OUTSIDE RECORDS SUMMARY | 2018-05-18 15:55 | XMS REPORT ---
:1955 External Reference #:[id number] Author Organization [email or web address] Address [address] [place] [address] Phone [phone] Care Team Providers Name Role Phone Stef Rock RPA Primary Care Physician Unavailable Payers Type Date Identification Numbers Payment Provider Subscriber Health Maintenance Policy Number: [facility] Medicare Milan Wilder (HMO) [id number] Solutions Group Number: [id number] [address] [address] PayID: [id number] [place] [address] [place] Policy Number: [id number] Medicaid Milan Nicole Group Name: 1 1 [address] PayID: [id number] [place] [address] Problems Date Description Provider Status Onset: 06/28/2015 [...] s mouth every Brittanydonharini, 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, invasive gi or gu procedures [...] CPT Code Status Date Vaccine Lot # 58300 Given 04/20/2017 Influenza Virus Vaccine, Quadrivalent, Split, Preservative Free 02823 Given 06/04/2016 Influenza Virus Vaccine, Quadrivalent, Split, Preservative Free 38283 Given 06/04/2016 Pneumococcal Conjugate Vaccine 13 Valent For Intramuscular Use 63667 Given 05/27/2015 Pneumococcal Conjugate Vaccine 13 Valent [...] Color Yellow Urine Appearance Clear Urine Specific [place] 1.018 1.010-1.030 Urine pH 6.0 5-9 Urine [...] [address]: Sharifa Stewart MD Acct: [id number] Unit: [id number] AGE: 59 Location: [facility] Re07/21/15 SEX: M Status: REG REF SPEC: [id number] CHANDANA: 07/21/15-[address]: Sharifa Stewart MD REQ: [id number] RECD: 07/21/15 STATUS: COMP OTHR DR: Kallie Rock PA _ SOURCE: URINE SPDESC: ORDERED: Urine Culture QUERIES: Urine Source: Clean Catch Procedure Result Verified Site Urine Culture Final 07/23/15- 1041 ML No Growth Day 2 (<1,000 CFU/mL) * ML - MAIN LAB ([facility]) . END OF REPORT * ML=Testing performed at Main Lab DEPARTMENT OF PATHOLOGY, [address] [place] [address] Jeremie Best M.D. Director [facility] # [id number] Procedures Date CPT Code Description Status 04/19/2018 Inject/Drain Joint/Bursa Major W/O US Completed 03/01/2018 Inject/Drain Joint/Bursa Major W/O US Completed 12/06/2017 24316 Carpal Tunnel Release Completed 12/06/2017 42813 Neuroplasty &/Or Transposition; Ulnar Nerve AT Elbow Completed 12/06/2017 39988 Neuroplasty &/Or Transposition; Ulnar Nerve AT Elbow Completed 10/10/2017 Inject/Drain Joint/Bursa Major W/O US Completed 09/28/2017 Inject/Drain Joint/Bursa Intermediate W/O US Completed 05/09/2017 Inject/Drain Joint/Bursa Major W/O US Completed 04/04/2016 47077 Polysomnography Sleep Staging 4+ Parameters W/Cpap Completed 02/03/2016 38141 Polysomnography Sleep Staging 4+ Parameters W/Cpap Completed 08/03/201521672 THR Total Hip Replacement Completed 08/03/2015 97997 THR Total Hip Replacement Completed 07/23/2007 94194 EKG, Interpretation Only Completed Encounters Type Date Location Provider CPT E/M Dx Office Visit 04/19/2018 [facility]opedic Services Sharifa Stewart M.D. 43389 M25.511 8:30a Of [facility] M25.512 M19.011 M19.012 Office Visit 03/01/2018 9:15a [facility] Of Sharifa Stewart M.D. 28131 M25.562 C.M.A. M25.462 S83.242A X50.9xxA Office Visit 11/13/2017 11:00a [facility] Sleep Sherrell Gauthier, 05423 G47.33 Services Of oSny RANDALL RN, MILL TENDER- Office Visit 10/31/2017 9:30a [facility] Of Sharifa Stewart M.D. 68849 G56.01 C.M.A. G56.02 M75.41 M19.011 G56.21 G56.22 M25.511 Office Visit 10/10/2017 11:15a [facility] Of Sharifa Stewart M.D. 33865 M19.012 C.M.A. M19.011 M75.41 M75.42 M25.511 G56.01 G56.02 M54.2 M25.512 Office Visit 09/28/2017 8:00a [facility] Of Sharifa Stewart M.D. 52815 M25.511 C.M.A. M75.41 M19.011 G56.01 G56.02 M54.2 Office Visit 07/09/2017 8:45a [facility] Of Sharifa Stewart M.D. 98414 M25.551 C.M.A. Z96.641 M54.5 Office Visit 05/16/2017 11:15a [facility] Sleep Sherrell Gauthier, 27003 G47.37 Services Of [facility] ROBERT RANDALL, MILL TENDER-JESÚS G47.33 Office Visit 05/09/2017 10:00a [facility] Services Of Sharifa Stewart M.D. 46291 Z96.641 C.M.A. M70.61 Office Visit 04/23/2017 11:15a [facility] [place], [address] R10.31 [facility] FACS Office Visit 02/19/2017 11:30a Pul[facility]ology And Sleep Sherrell Gauthier, 51573 G47.37 Services Of [facility] ROBERT RANDALL, MILL TENDER-JESÚS G47.33 Office Visit 11/17/2016 11:30a [facility] Sleep Sherrell Gauthier 12599 G47.33 Services Of [facility] ROBERT RANDALL, MILL TENDER-JESÚS G47.37 Z98.890 Office Visit 04/21/2016 9:20a [facility] Internal Medicine - Aris Solano, 24540 I10 Liat Yuen G47.37 D75.1 M54.5 K21.9 Z13.220 Z11.59 R31.9 Office Visit 04/18/2016 1:00p Pulmonology [place] [address] G47.33 Services Of [facility] G47.37 D75.1 Office Visit 02/21/2016 10:45a [facility] [place] [address] G47.33 Services Of [facility] G47.37 Office Visit 12/21/2015 11:00a [facility] [place] [address] G47.33 Services Of [facility] D75.1 Office Visit 06/28/2015 8:00a [facility] Of Sharifa Stewart M.D. 92839 M16.11 C.M.A. M25.551 Office Visit 07/19/2009 9:30a Neurosurgery Services Of Emerson Casas, 50634 724.2 Sony Yuen Plan of Care Future Appointment(s):04/22/2018 3:00 pm - Sharifa Stewart M.D. at [facility]opedic Services Of M..05/20/2018 9:00 am - Sherrell Gauthier DNP, RN, MILL TENDER- at Pulmonology And Sleep Services [facility]04/19/2018 - Sharifa Stewart M.D.M25.511 Pain in right shoulderFollow up:Follow up: 3 amzwvjE25.512 Pain in left ifgeumumH06.011 Primary osteoarthritis, right hhsqimswN07.012 Primary osteoarthritis, left shoulder
[2018-05-18 16:04] VITALS: BP 140/101
--- NOTE | 2018-05-18 16:11 | UC ---
Skin Complaint HPI - HPI Summary HPI Summary: 62 y/o male presents to the urgent care c/o red rash in his RT lower leg for the past 3 days. Pt reports it itches a lot w/ mild pain at touch. Pain is 2/ 10. Pt reports Hx of Brown recluse spider bite in 2013 for which he was hospitalized at [facility]. He is concerned since today rash is very similar. Pt denies fever, SOB, chest pain, abdominal pain, N/v/D. He has not taking anything to alleviate symptoms. - History of Current Complaint Chief Complaint: UCRash Time Seen by Provider: 05/18/18 16:09 Stated Complaint: R ANKLE COMPLAINT Hx Obtained From: Patient Onset/Duration: Sudden Onset, Lasting Days - 3 days, Still Present, Worse Since - yesterday Skin Exposure Onset/Duration: Days Ago - 3 days Timing: Constant Onset Severity: Mild Current Severity: Mild Pain Intensity: 2 - at touch Pain Scale Used: 0-10 Numeric Location: Discrete - Rt lower leg Character: Pruritus, Redness, Painful Aggravating Factor(s): Touch Alleviating Factor(s): Nothing Associated Signs & Symptoms: Positive: Rash, Drainage, Tenderness. Negative: Nausea, Vomiting, Numbness, Difficulty Breathing, Fever, Chills, Hoarseness, Throat Tightening Related History: Possible Reaction to: Insect - Allergy/Home Medications Allergies/Adverse Reactions: Allergies Allergy/AdvReac Type Severity Reaction Status Date / Time iodine Allergy Severe Anaphylatic Verified 05/18/18 16:05 Shock codeine Allergy Intermediate Hives Verified 05/18/18 16:05 erythromycin base Allergy Intermediate Hives Verified 05/18/18 16:05 latex Allergy Mild Itching Verified 05/18/18 16:05 Adhesive Tape [Plastic Tape] Allergy Rash Verified 05/18/18 16:05 morphine AdvReac Mild Nausea Verified 05/18/18 16:05 SEAFOOD Allergy Hives Uncoded 05/18/18 16:05 Review of Systems Constitutional: Negative Skin: Rash - RT lower leg red rash w/ mild pain and itchiness Eyes: Negative ENT: Negative Respiratory: Negative Cardiovascular: Negative Gastrointestinal: Negative Genitourinary: Negative Motor: Negative Neurovascular: Negative Musculoskeletal: Negative Neurological: Negative Psychological: Negative Is Patient Immunocompromised?: No All Other Systems Reviewed And Are Negative: Yes PMH/Surg Hx/FS Hx/Imm Hx Previously Healthy: Yes Cardiovascular History: Hypertension - Surgical History Surgical History: Yes Surgery Procedure, Year, and Place: 2011 spinal surgery ([facility]); Fatty tumors removed from back, appendix, sinus and nasal surgery. right hip replacement 2 years ago (gwen) - Family History Known Family History: Positive: Hypertension - Social History Occupation: Employed Full-time Lives: With Family Alcohol Use: Occasionally Alcohol Amount: 2-3 drinks per week Substance Use Type: None Substance Use Comment - Amount & Last Used: percocet Smoking Status (MU): Former Smoker Have You Smoked in the Last Year: No - Immunization History Most Recent Influenza Vaccination: 2014 Most Recent Tetanus Shot: 2015 Most Recent Pneumonia Vaccination: 2014 Physical Exam - Summary Physical Exam Summary: Vital Signs Reviewed: Yes General: well developed, well nourished male sitting in the examining table w/o any apparent distress. Eyes: Positive: Conjunctiva Clear - PERRLA, EOMI ENT: Positive: Normal ENT inspection, Hearing grossly normal, Pharynx normal, TMs normal Neck: Positive: Supple, Nontender, No Lymphadenopathy Respiratory: Positive: Chest nontender, Lungs clear, Normal breath sounds Cardiovascular: Positive: RRR, No Murmur, Pulses Normal Abdomen Description: Positive: Nontender, No Organomegaly, Soft. Negative: CVA Tenderness (R), CVA Tenderness (L) Bowel Sounds: Positive: Present Musculoskeletal: Positive: Strength Intact, ROM Intact, No Edema Neurological Exam: Normal Psychological Exam: Normal Skin: Positive: rashes - RT lower leg, lateral distal aspect w/ erythematous patch w/ indistinct borders abut 2.0cmx 2.0cm in size, warm to touch, mild central yellowish crusting, signs of excoriation observed and tender to palpation. Triage Information Reviewed: Yes Vital Signs: Initial Vital Signs Temp 98.3 F 05/18/18 16:01 Pulse 58 05/18/18 16:01 Resp 12 05/18/18 16:01 BP 140/101 05/18/18 16:01 Pulse Ox 100 05/18/18 16:01 Course/Dx - Course Course Of Treatment: 62 y/o male presents to the urgent care c/o red rash in his RT lower leg for the past 3 days. Pt reports it itches a lot w/ mild pain at touch. Pain is 2/10. Pt reports Hx of Brown recluse spider bite in 2013 for which he was hospitalized at [facility]. He is concerned since today rash is very similar. Pt denies fever, SOB, chest pain, abdominal pain, N/v/D. He has not taking anything to alleviate symptoms. Hx obtained. Pt w/ RT lower leg, lateral distal aspect w/ erythematous patch w/ indistinct borders abut 2.0cm x 20.cm in size, warm to touch, mild central yellowish crusting, signs of excoriation observed and tender to palpation on examination. Pt w/ possible cellulitis s/p insect bite. Pt is very concerned that it may be a brown recluse spider bite like the one he had in 2014. Wound culture obtained from Rt lower leg and sent to lab to r/o any abnormality. I discussed Pt's symptom sw/ Dr Iqbal and he doesn't think rash it is a spider bite. He recommend ABxs. Pt Rx Keflex PO, Benadryl PO, and topical Bacitracin. rash demarcated with a skin marker and Advised if rash doubles in size and if she develops fever to go to the ER for further treatment. Pt BP today elevated w/o Hx of HTN. Pt advised to decrease salt in diet and monitor BP at home if it continues to be elevated to f /u with PCP for further management. D/c instrcutions explained. Pt understood and agreed. - Differential Diagnoses - Skin Complaint Differential Diagnoses: Abscess, Cellulitis, Local Allergic Reaction, MRSA, Other - spider bite or insect bite - Diagnoses Provider Diagnoses: 1- Rt lower leg cellulitis s/p insect bite. 2- Uncontrolled HTN Discharge - Sign-Out/Discharge Documenting (check all that apply): Patient Departure - D/C home All imaging exams completed and their final reports reviewed: No Studies - Discharge Plan Condition: Stable Disposition: HOME Prescriptions: Bacitracin OINTMENT* 1 applic TOPICAL TID #1 tube Cephalexin CAP* [Keflex CAP*] 500 mg PO QID #28 cap diPHENhydraMINE PO* [Benadryl PO 25 MG TAB*] 25 mg PO Q6H PRN #30 tab PRN Reason: pruritus Patient Education Materials: Cellulitis (ED), Insect Bite or Sting (ED), Low- Sodium Diet (ED) Referrals: Kallie Rock PA [Primary Care Provider] - 2 Days Additional Instructions: 1-Please take full course of Antibiotic. Apply Bacitracin PO on affected area as directed to alleviate symptoms. 2- If redness and swelling doubles in size after 48 hrs of taking antibiotic and fever develops please go to the ER immediately. 3-Avoid standing for long periods of time or flexing your foot, keep it elevated and keep wound clean and dry. 4- wound culture sent to lab to r/o any abnormality. You will be notified of the results 5-Please F/u with your PCP in 2 days if not improvement of symptoms for further evaluation and treatment. 6-Your BP is elevated today. please decrease salt in your diet, monitor BP and if it continues to be elevated please f/u with your PCP for further management - Billing Disposition and Condition Condition: STABLE Disposition: Home
--- NOTE | 2018-05-19 17:01 | UC ---
- Progress Note Progress Note: 05/19/2018 Wound gram stain negative, no growth Pending final wound culture No change Simona Hensley PA-C Discharge - Sign-Out/Discharge Documenting (check all that apply): Patient Departure - D/c home All imaging exams completed and their final reports reviewed: No Studies - Discharge Plan Condition: Stable Disposition: HOME Prescriptions: Bacitracin OINTMENT* 1 applic TOPICAL TID #1 tube Cephalexin CAP* [Keflex CAP*] 500 mg PO QID #28 cap diPHENhydraMINE PO* [Benadryl PO 25 MG TAB*] 25 mg PO Q6H PRN #30 tab PRN Reason: pruritus Patient Education Materials: Cellulitis (ED), Insect Bite or Sting (ED), Low- Sodium Diet (ED) Referrals: Kallie Rock PA [Primary Care Provider] - 2 Days Additional Instructions: 1-Please take full course of Antibiotic. Apply Bacitracin PO on affected area as directed to alleviate symptoms. 2- If redness and swelling doubles in size after 48 hrs of taking antibiotic and fever develops please go to the ER immediately. 3-Avoid standing for long periods of time or flexing your foot, keep it elevated and keep wound clean and dry. 4- wound culture sent to lab to r/o any abnormality. You will be notified of the results 5-Please F/u with your PCP in 2 days if not improvement of symptoms for further evaluation and treatment. 6-Your BP is elevated today. please decrease salt in your diet, monitor BP and if it continues to be elevated please f/u with your PCP for further management - Billing Disposition and Condition Condition: STABLE Disposition: Home
== END 2018-05-18 17:05 | disposition home or self-care (01) ==
LOC: UCEAST 15:48
DX: L03.115 Cellulitis of right lower limb (principal); I10 Essential (primary) hypertension; Z96.641 Presence of right artificial hip joint; Z88.1 Allergy status to other antibiotic agents; Z88.3 Allergy status to other anti-infective agents; Z88.5 Allergy status to narcotic agent; Z91.013 Allergy to seafood; Z91.048 Other nonmedicinal substance allergy status; Z87.891 Personal history of nicotine dependence
CPT/HCPCS: 87070; 87205; 99212; G0463

== ENCOUNTER 2018-05-23 17:59 | Emergency (ER) | payer MEDICARE, MEDICAID ==
[2018-05-23 20:43] LABS: ABS Basophils 0.1 10^3/ul (0-0.2); ABS Eosinophils 0.1 10^3/ul (0-0.6); ABS Lymphocytes 1.7 10^3/ul (1.0-4.8); ABS Monocytes 0.5 10^3/ul (0-0.8); ABS Nucleated RBC 0 10^3/ul; Eosinophil % 1.4 % (0-6); Hematocrit 48 % (42-52); Hemoglobin 17.2 g/dl (14.0-18.0); Lymphocyte % 32.2 % (25-47); Mean Corpuscular HGB Conc 36 g/dl (31-36); Mean Corpuscular Hemoglobin 32 pg (27-31); Mean Corpuscular Volume 91 fL (80-94); Mean Platelet Volume 8.8 um3 (7.4-10.4); Nucleated Red Blood Cells % 0.6; Platelet Count 155 10^3/ul (150-450); Red Blood Count 5.32 10^6/ul (4.00-5.40); Red Cell Distribution Width 13 % (10.5-15); White Blood Count 5.3 10^3/ul (3.5-10.8)
[2018-05-23 21:02] LABS: EGFR Non-African American 89.8 (>60)
--- NOTE | 2018-05-23 21:18 | ED ---
Skin Complaint - HPI Summary HPI Summary: 62-year-old male presents with rash on right leg for past 5 days. He states he got bite by a spider. He states he's been taking keflex for the past 5 days. He states that he's noticed some spreading redness to the leg. No fevers. No chills. He is not diabetic. He states he had this before when he got bit by a brown recluse. He is not sure what bit him. States that the rash is very itchy. He states the been take benadryl for the itching. Denies any history of MRSA. - History of Current Complaint Chief Complaint: EDAnimalBite Time Seen by Provider: 05/23/18 21:07 Stated Complaint: RT LEG PAIN/ BITE Pain Intensity: 0 - Additional Pertinent History Primary Care Physician: [id number] - Allergy/Home Medications Allergies/Adverse Reactions: Allergies Allergy/AdvReac Type Severity Reaction Status Date / Time iodine Allergy Severe Anaphylatic Verified 05/23/18 18:13 Shock codeine Allergy Intermediate Hives Verified 05/23/18 18:13 erythromycin base Allergy Intermediate Hives Verified 05/23/18 18:13 latex Allergy Mild Itching Verified 05/23/18 18:13 Adhesive Tape [Plastic Tape] Allergy Rash Verified 05/23/18 18:13 morphine AdvReac Mild Nausea Verified 05/23/18 18:13 contrast dye Allergy Altered Uncoded 05/23/18 18:13 Mental Status PMH/Surg Hx/FS Hx/Imm Hx Endocrine/Hematology History: Denies: Hx Diabetes, Hx Thyroid Disease Cardiovascular History: Reports: Hx Hypertension Respiratory History: Reports: Hx Asthma, Hx Chronic Bronchitis, Hx Chronic Obstructive Pulmonary Disease (COPD), Hx Seasonal Allergies, Hx Sleep Apnea GI History: Reports: Hx Gastroesophageal Reflux Disease - WELL CONTROLLED, Hx Gastrointestinal Bleed Denies: Hx Ulcer History: Reports: Other Problems/Disorders - 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 right hip replacement 2 years ago ([facility]) Hx Anesthesia Reactions: No Infectious Disease History: No Infectious Disease History: Reports: Hx Hepatitis, Hx Shingles Denies: Hx Clostridium Difficile, Hx Human Immunodeficiency Virus (HIV), Hx of Known/Suspected MRSA, Hx Tuberculosis, Hx Known/Suspected VRE, Hx Known/ Suspected VRSA, Traveled Outside the [place] in Last 30 Days - Family History Known Family History: Positive: Hypertension - Social History Alcohol Use: Occasionally Alcohol Amount: 2-3 drinks per week Substance Use Type: Reports: None Substance Use Comment - Amount & Last Used: percocet Smoking Status (MU): Former Smoker Have You Smoked in the Last Year: No Review of Systems Negative: Chest Pain Negative: Shortness Of Breath Positive: Rash All Other Systems Reviewed And Are Negative: Yes Physical Exam Triage Information Reviewed: Yes Vital Signs On Initial Exam: Initial Vitals Temp Pulse Resp BP Pulse Ox 98.4 F 52 16 143/106 96 05/23/18 18:07 05/23/18 18:07 05/23/18 18:07 05/23/18 18:07 05/23/18 18:07 Vital Signs Reviewed: Yes Appearance: Positive: Well-Appearing Skin: Positive: Warm, Dry, Other - 6cm circular area of erythema on right calf without warmth to touch, no streaking, Head/Face: Positive: Normal Head/Face Inspection Eyes: Positive: Normal, Conjunctiva Clear ENT: Positive: Pharynx normal Respiratory/Lung Sounds: Positive: Clear to Auscultation, Breath Sounds Present Cardiovascular: Positive: Normal, RRR Musculoskeletal: Positive: Strength/ROM Intact - right calf, Other - good pulses Neurological: Positive: Normal Psychiatric: Positive: Normal Diagnostics - Vital Signs Vital Signs Temp Pulse Resp BP Pulse Ox 05/23/18 20:35 97.7 F 53 16 149/99 99 05/23/18 18:07 98.4 F 52 16 143/106 96 - Laboratory Lab Results: Lab Results 05/23/18 05/23/18 05/23/18 Range/Units 20:27 20:27 20:27 WBC 5.3 (3.5-10.8) 10^3/ul RBC 5.32 (4.00-5.40) 10^6/ul Hgb 17.2 (14.0-18.0) g/dl Hct 48 (42-52) % MCV 91 (80-94) fL MCH 32 H (27-31) pg MCHC 36 (31-36) g/dl RDW 13 (10.5-15) % Plt Count 155 (150-450) 10^3/ul MPV 8.8 (7.4-10.4) um3 Neut % (Auto) 55.5 (38-83) % Lymph % (Auto) 32.2 (25-47) % [place] % (Auto) 9.0 H (0-7) % Eos % (Auto) 1.4 (0-6) % Baso % (Auto) 1.9 (0-2) % Absolute Neuts (auto) 3.0 (1.5-7.7) 10^3/ul Absolute Lymphs (auto) 1.7 (1.0-4.8) 10^3/ul Absolute Monos (auto) 0.5 (0-0.8) 10^3/ul Absolute Eos (auto) 0.1 (0-0.6) 10^3/ul Absolute Basos (auto) 0.1 (0-0.2) 10^3/ul Absolute Nucleated RBC 0 10^3/ul Nucleated RBC % 0.6 Sodium 143 (135-145) mmol/L Potassium 4.3 (3.5-5.0) mmol/L Chloride 107 (101-111) mmol/L Carbon Dioxide 29 (22-32) mmol/L Anion Gap 7 (2-11) mmol/L BUN 14 (6-24) mg/dL Creatinine 0.86 (0.67-1.17) mg/dL Est GFR ( Amer) 108.7 (>60) Est GFR (Non-Af Amer) 89.8 (>60) BUN/Creatinine Ratio 16.3 (8-20) Glucose 96 (70-100) mg/dL Lactic Acid 1.3 (0.5-2.0) mmol/L Calcium 9.3 (8.6-10.3) mg/dL Total Bilirubin 0.70 (0.2-1.0) mg/dL AST 21 (13-39) U/L ALT 21 (7-52) U/L Alkaline Phosphatase 98 (34-104) U/L Total Protein 7.1 (6.4-8.9) g/dL Albumin 4.5 (3.2-5.2) g/dL Globulin 2.6 (2-4) g/dL Albumin/Globulin Ratio 1.7 (1-3) Result Diagrams: 05/23/18 20:27 05/23/18 20:27 Lab Statement: Any lab studies that have been ordered have been reviewed, and results considered in the medical decision making process. Course/Dx - Course Course Of Treatment: 62-year-old male presents with rash on right leg for past 5 days. He states he got bite by a spider. He states he's been taking keflex for the past 5 days. He states that he's noticed some spreading redness to the leg. No fevers. No chills. He is not diabetic. He states he had this before when he got bit by a brown recluse. He is not sure what bit him. States that the rash is very itchy. He states the been take benadryl for the itching. Denies any history of MRSA. on exam has red rash 5cm circuferential with no warmth. no streaking. labs wnl. will try placing on doxcycline instead of keflex. warned of signs to return to ED. patient understand and agrees with plan. - Differential Diagnoses - Skin Complaint Differential Diagnoses: Abscess, Cellulitis, Contact Dermatitis - Diagnoses Provider Diagnoses: Cellulitis Discharge - Sign-Out/Discharge Documenting (check all that apply): Patient Departure - Discharge Plan Condition: Good Disposition: HOME Prescriptions: DOXYcycline CAP(*) [DOXYcycline 100MG CAP(*)] 100 mg PO BID #20 cap Patient Education Materials: Cellulitis (ED) Referrals: Kallie Rock PA [Primary Care Provider] - Additional Instructions: switch to doxycycline twice a day for 10 days stop Keflex elevate take Benadryl every 6 hours as needed for itching Return to ED if develop any new or worsening symptoms - Billing Disposition and Condition Condition: GOOD Disposition: Home
[2018-05-23 23:47] VITALS: BP 133/65
== END 2018-05-23 21:30 | disposition home or self-care (01) ==
LOC: ED 17:59
DX: L03.90 Cellulitis, unspecified (principal); I10 Essential (primary) hypertension; R21 Rash and other nonspecific skin eruption; Z87.891 Personal history of nicotine dependence
CPT/HCPCS: 36415; 80053; 83605; 85025; 99282

== ENCOUNTER 2018-09-16 14:12 | Emergency (ER) | payer MEDICARE, MEDICAID ==
[2018-09-16] MEDS ORDERED: NS 0.9% 1000 ML* 1,000 ML IV ONE (16:06)
[2018-09-16] MEDS ORDERED: Lidocaine 2% VISCOUS* 15 ML UDC PO ONE (16:08)
[2018-09-16] MEDS ORDERED: Ondansetron ODT TAB* 4 MG PO ONE (16:52)
[2018-09-16 17:30] LABS: ABS Basophils 0 10^3/ul (0-0.2); ABS Eosinophils 0.1 10^3/ul (0-0.6); ABS Lymphocytes 1.3 10^3/ul (1.0-4.8); ABS Monocytes 0.6 10^3/ul (0-0.8); ABS Neutrophils 6.9 10^3/ul (1.5-7.7); ABS Nucleated RBC 0 10^3/ul; Eosinophil % 0.7 %; Hematocrit 48 % (42-52); Hemoglobin 16.8 g/dl (14.0-18.0); Mean Corpuscular HGB Conc 35 g/dl (31-36); Mean Corpuscular Hemoglobin 32 pg (27-31); Mean Corpuscular Volume 91 fL (80-94); Mean Platelet Volume 8.6 fL (7.4-10.4); Nucleated Red Blood Cells % 0.1; Platelet Count 187 10^3/ul (150-450); Red Cell Distribution Width 14 % (10.5-15); White Blood Count 8.9 10^3/ul (3.5-10.8)
[2018-09-16 17:46] LABS: Albumin 4.3 g/dL (3.2-5.2); Albumin/Globulin Ratio 1.6 (1-3); BUN/Creatinine Ratio 27.9 (8-20); C Reactive Protein 20.06 mg/L (<8.01); Calcium 9.3 mg/dL (8.6-10.3); EGFR Non-African American 89.8 (>60); Globulin 2.7 g/dL (2-4); Potassium 3.5 mmol/L (3.5-5.0); Total Bilirubin 0.9 mg/dL (0.2-1.0)
--- NOTE | 2018-09-16 18:31 | ED ---
Throat Pain/Nasal Congestion - HPI Summary HPI Summary: Patient complains of sore throat pain, dysphasia, N/V, green exudates on the back of his throat 1 week. Patient had soft palate removal surgery 1 week ago at [place]. States symptoms have been consistent and present since surgery. States he has not been able to eat or drink since. Patient also states he has contacted surgeon who states that exudate, pain are all normal post surgical symptoms. Patient was not prescribed antibiotic, and was told to take Tylenol for pain. Patient also states that he contacted surgeon today who advised patient to come to the ER for hydration and pain control. Patient denies fever , cough, CP, SOB, D, abdominal pain, change in urine, change in BM. Medical history sleep apnea, HTN. - History of Current Complaint Chief Complaint: EDGeneral Time Seen by Provider: 09/16/18 15:44 Hx Obtained From: Patient Onset/Duration: Gradual Onset Severity: Severe Associated Signs And Symptoms: Positive: Dysphagia Cough: None - Allergies/Home Medications Allergies/Adverse Reactions: Allergies Allergy/AdvReac Type Severity Reaction Status Date / Time iodine Allergy Severe Anaphylatic Verified 09/16/18 14:34 Shock codeine Allergy Intermediate Hives Verified 09/16/18 14:34 erythromycin base Allergy Intermediate Hives Verified 09/16/18 14:34 latex Allergy Mild Itching Verified 09/16/18 14:34 Adhesive Tape [Plastic Tape] Allergy Rash Verified 09/16/18 14:34 morphine AdvReac Mild Nausea Verified 09/16/18 14:34 contrast dye Allergy Altered Uncoded 09/16/18 14:34 Mental Status Home Medications: Home Medications Acetaminophen [Acetaminophen Extra Strength] 1,000 mg PO TID PRN 09/16/18 [ History Confirmed 09/16/18] Fluticasone NASAL SPRAY 50MCG* [Flonase NASAL SPRAY 50MCG*] 1 spray BOTH NARES DAILY PRN 09/16/18 [History Confirmed 09/16/18] Gabapentin CAP(*) [Neurontin 400 mg CAP(*)] 400 mg PO TID 09/16/18 [History Confirmed 09/16/18] Meloxicam(NF) [Mobic(NF)] 7.5 mg PO DAILY 09/16/18 [History Confirmed 09/16/18] Metoprolol Succinate XL TAB* [Toprol XL TAB*] 100 mg PO DAILY 09/16/18 [History Confirmed 09/16/18] Omeprazole CAP (NF) [Prilosec CAP* 20 MG] 40 mg PO BID 09/16/18 [History Confirmed 09/16/18] Telmisartan/Hydrochlorothiazid [Micardis Hct 80-12.5 mg] 1 tab PO QAM 09/16/18 [ History Confirmed 09/16/18] amLODIPine TAB* [Norvasc 5 mg TAB*] 10 mg PO DAILY 09/16/18 [History Confirmed 09/16/18] guaiFENesin ER TAB [Mucinex*] 600 mg PO DAILY 09/16/18 [History Confirmed ] methylPREDNISolone TAB* [Medrol TAB*] 4 - 8 mg PO .SEE ELIZABETH 09/16/18 [History Confirmed 09/16/18] PMH/Surg Hx/FS Hx/Imm Hx Endocrine/Hematology History: Denies: Hx Diabetes, Hx Thyroid Disease Cardiovascular History: Reports: Hx Hypertension Respiratory History: Reports: Hx Asthma, Hx Chronic Bronchitis, Hx Chronic Obstructive Pulmonary Disease (COPD), Hx Seasonal Allergies, Hx Sleep Apnea GI History: Reports: Hx Gastroesophageal Reflux Disease - WELL CONTROLLED, Hx Gastrointestinal Bleed Denies: Hx Ulcer History: Reports: Other Problems/Disorders - 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 right hip replacement 2 years ago ([facility]) Hx Anesthesia Reactions: No Infectious Disease History: No Infectious Disease History: Reports: Hx Hepatitis, Hx Shingles Denies: Hx Clostridium Difficile, Hx Human Immunodeficiency Virus (HIV), Hx of Known/Suspected MRSA, Hx Tuberculosis, Hx Known/Suspected VRE, Hx Known/ Suspected VRSA, Traveled Outside the [place] in Last 30 Days - Family History Known Family History: Positive: Hypertension - Social History Alcohol Use: Weekly Alcohol Amount: 2-3 drinks per week Substance Use Type: Reports: None Substance Use Comment - Amount & Last Used: percocet Smoking Status (MU): Former Smoker Have You Smoked in the Last Year: No Review of Systems Constitutional: Negative Eyes: Negative Positive: Sore Throat Cardiovascular: Negative Respiratory: Negative Positive: Vomiting, Nausea Genitourinary: Negative Musculoskeletal: Negative Skin: Negative Neurological: Negative Psychological: Normal All Other Systems Reviewed And Are Negative: Yes Physical Exam - Summary Physical Exam Summary: Greenish yellow exudates the back of throat. Sutures visible. Physical exam otherwise unremarkable. Triage Information Reviewed: Yes Vital Signs On Initial Exam: Initial Vitals Temp Pulse Resp BP Pulse Ox 98.7 F 70 18 150/78 94 09/16/18 14:20 09/16/18 14:20 09/16/18 14:20 09/16/18 14:20 09/16/18 14:20 Vital Signs Reviewed: Yes Appearance: Positive: Well-Appearing Skin: Positive: Warm Head/Face: Positive: Normal Head/Face Inspection Eyes: Positive: Normal ENT: Positive: Tonsillar exudate, Hoarse voice, Uvula midline. Negative: Trismus, Muffled voice Neck: Positive: Supple Respiratory/Lung Sounds: Positive: Clear to Auscultation Cardiovascular: Positive: Normal Abdomen Description: Positive: Nontender Musculoskeletal: Positive: Normal Neurological: Positive: Normal Psychiatric: Positive: Normal AVPU Assessment: Alert - [place] Coma Scale Best Eye Response: 4 - Spontaneous Best Motor Response: 6 - Obeys Commands Best Verbal Response: 5 - Oriented Coma Scale Total: 15 Diagnostics - Vital Signs Vital Signs Temp Pulse Resp BP Pulse Ox 09/16/18 14:20 98.7 F 70 18 150/78 94 - Laboratory Lab Results: Lab Results 09/16/18 09/16/18 09/16/18 Range/Units 17:21 17:22 17:22 WBC 8.9 (3.5-10.8) 10^3/ul RBC 5.30 (4.00-5.40) 10^6/ul Hgb 16.8 (14.0-18.0) g/dl Hct 48 (42-52) % MCV 91 (80-94) fL MCH 32 H (27-31) pg MCHC 35 (31-36) g/dl RDW 14 (10.5-15) % Plt Count 187 (150-450) 10^3/ul MPV 8.6 (7.4-10.4) fL Neut % (Auto) 77.0 % Lymph % (Auto) 15.0 % [place] % (Auto) 6.9 % Eos % (Auto) 0.7 % Baso % (Auto) 0.4 % Absolute Neuts (auto) 6.9 (1.5-7.7) 10^3/ul Absolute Lymphs (auto) 1.3 (1.0-4.8) 10^3/ul Absolute Monos (auto) 0.6 (0-0.8) 10^3/ul Absolute Eos (auto) 0.1 (0-0.6) 10^3/ul Absolute Basos (auto) 0 (0-0.2) 10^3/ul Absolute Nucleated RBC 0 10^3/ul Nucleated RBC % 0.1 Sodium 142 (135-145) mmol/L Potassium 3.5 (3.5-5.0) mmol/L Chloride 105 (101-111) mmol/L Carbon Dioxide 30 (22-32) mmol/L Anion Gap 7 (2-11) mmol/L BUN 24 (6-24) mg/dL Creatinine 0.86 (0.67-1.17) mg/dL Est GFR ( Amer) 108.7 (>60) Est GFR (Non-Af Amer) 89.8 (>60) BUN/Creatinine Ratio 27.9 H (8-20) Glucose 106 H (70-100) mg/dL Lactic Acid 1.0 (0.5-2.0) mmol/L Calcium 9.3 (8.6-10.3) mg/dL Total Bilirubin 0.90 (0.2-1.0) mg/dL AST 14 (13-39) U/L ALT 14 (7-52) U/L Alkaline Phosphatase 85 (34-104) U/L C-Reactive Protein 20.06 H (<8.01) mg/L Total Protein 7.0 (6.4-8.9) g/dL Albumin 4.3 (3.2-5.2) g/dL Globulin 2.7 (2-4) g/dL Albumin/Globulin Ratio 1.6 (1-3) Result Diagrams: 09/16/18 17:22 09/16/18 17:21 Lab Statement: Any lab studies that have been ordered have been reviewed, and results considered in the medical decision making process. EENT Course/Dx - Course Course Of Treatment: Patient complains of sore throat pain, dysphasia, N/V, green exudates on the back of his throat 1 week. Patient had soft palate removal surgery 1 week ago at [facility]. States symptoms have been consistent and present since surgery. States he has not been able to eat or drink since. Patient also states he has contacted surgeon who states that exudate, pain are all normal post surgical symptoms. Patient was not prescribed antibiotic, and was told to take Tylenol for pain. Patient also states that he contacted surgeon today who advised patient to come to the ER for hydration and pain control. Patient denies fever, cough, CP, SOB, D, abdominal pain, change in urine, change in BM. Medical history sleep apnea, HTN. Physical exam:Greenish yellow exudates the back of throat. Sutures visible. Physical exam otherwise unremarkable. Vital signs within normal limits and stable. BUN creatinine ratio 27. Labs otherwise unremarkable. Patient throat pain significantly improved with viscous lidocaine. Nausea improved with Zofran. States he feels better after 1 L normal saline. Rx for viscous lidocaine, Zofran. Follow-up with surgeon. Patient understands and approves of plan. - Diagnoses Provider Diagnoses: Throat pain Discharge - Sign-Out/Discharge Documenting (check all that apply): Patient Departure - Discharge Plan Condition: Stable Disposition: HOME Prescriptions: Lidocaine 2% VISCOUS* [Xylocaine 2% Viscous*] 15 ml SWISH SPIT Q6H PRN #1 btl PRN Reason: Pain Ondansetron ODT TAB* [Zofran 4 MG Odt TAB*] 4 mg PO Q8H PRN 4 Days #14 tab.odt PRN Reason: Nausea Patient Education Materials: Dysphagia (ED) Referrals: Kallie Rock PA [Primary Care Provider] - Additional Instructions: Follow-up with your throat surgeon. Return to the ED for any new or worsening symptoms - Billing Disposition and Condition Condition: STABLE Disposition: Home
[2018-09-16 18:45] VITALS: BP 141/83
== END 2018-09-16 18:43 | disposition home or self-care (01) ==
LOC: ED 14:12
DX: J02.9 Acute pharyngitis, unspecified (principal); Z87.891 Personal history of nicotine dependence; K75.9 Inflammatory liver disease, unspecified; I10 Essential (primary) hypertension; J44.9 Chronic obstructive pulmonary disease, unspecified; J45.909 Unspecified asthma, uncomplicated; K21.9 Gastro-esophageal reflux disease without esophagitis; G47.30 Sleep apnea, unspecified
CPT/HCPCS: 36415; 80053; 83605; 85025; 86140; 87040; 96360; 96361; 99283; A9270-GY

== ENCOUNTER 2024-08-13 18:31 | Inpatient (IN) ==
[2024-08-13 19:13] LABS: ABS Lymphocytes 1.5 10^3/uL (1.0-4.8); ABS Monocytes 0.6 10^3/uL (0.0-1.1); ABS Neutrophils 3.7 10^3/uL (1.5-7.6); ABS Nucleated RBC 0.01 10^3/ul; Eosinophil % 0.7 %; Hematocrit 44.5 % (38-53); Hemoglobin 15.2 g/dL (13.2-16.3); Lymphocyte % 25.4 %; Mean Corpuscular Hemoglobin 30.6 pg (27-33); Mean Corpuscular Hgb Conc 34.1 g/dL (31-36); Mean Corpuscular Volume 89.5 fL (80-97); Mean Platelet Volume 9.2 fL (7.5-11.2); Nucleated Red Blood Cells % 0.2 %/100WBC (0.0-0.8); Platelet Count 144 10^3/uL (150-450); Red Blood Count 4.96 10^6/uL (4.06-5.63); Red Cell Distribution Width 14.8 % (12-17); White Blood Count 5.9 10^3/uL (3.6-10.2)
[2024-08-13 19:23] LABS: INR 1.2 (0.85-1.14)
[2024-08-13 19:55] LABS: Albumin 3.9 g/dL (3.2-5.2); Albumin/Globulin Ratio 1.6 (1-3); Calcium 8.9 mg/dL (8.6-10.3); Creatinine, Serum 1.15 mg/dL (0.67-1.17); Globulin 2.4 g/dL (2-4); Potassium 4.2 mmol/L (3.5-5.0); Total Bilirubin 0.4 mg/dL (0.2-1.0); Total Protein 6.3 g/dL (6.4-8.9); eGFR CKD-EPI 68.9 (>60)
[2024-08-13] MEDS: Acetaminophen IV 1 GM/100ML 1,000 MG/100 ML BAG IV ONE (20:27)
[2024-08-13 20:31] LABS: High Sensitivity Troponin 1 Hr 6 pg/mL (<20)
[2024-08-13] MEDS: Iohexol 350 (CONTRAST) 500 ML MDV IV ONE (20:50)
[2024-08-13] MEDS: Lactated Ringers 1000 ml BAG 1,000 ML IV ONE (21:00)
[2024-08-13] MEDS: methylPREDNISolone SOD SUCC 125 mg 2 ML VIAL IV ONE (21:00)
[2024-08-14] MEDS ORDERED: UBROGEPANT 100 MG PO PRN (00:02)
[2024-08-14] MEDS: Enoxaparin 100 MG/ML SYR SUBCUT SCH (00:34)
[2024-08-14] MEDS: Ondansetron 4 mg VIAL 2 MG/ML 2 ml VIAL IV ONE (02:03)
[2024-08-14] MEDS: Acetaminophen IV 1 GM/100ML 1,000 MG/100 ML BAG IV ONE (05:52)
[2024-08-14 09:48] LABS: ABS Basophils 0.1 10^3/uL (0.0-0.1); ABS Lymphocytes 0.7 10^3/uL (1.0-4.8); ABS Monocytes 0.1 10^3/uL (0.0-1.1); ABS Neutrophils 9.3 10^3/uL (1.5-7.6); ABS Nucleated RBC 0.01 10^3/ul; Hematocrit 43.2 % (38-53); Hemoglobin 14.8 g/dL (13.2-16.3); Lymphocyte % 7.2 %; Mean Corpuscular Hgb Conc 34.2 g/dL (31-36); Mean Corpuscular Volume 90.9 fL (80-97); Mean Platelet Volume 9.6 fL (7.5-11.2); Platelet Count 135 10^3/uL (150-450); Red Blood Count 4.76 10^6/uL (4.06-5.63); Red Cell Distribution Width 14.8 % (12-17); White Blood Count 10.3 10^3/uL (3.6-10.2)
[2024-08-14 10:27] LABS: Albumin 3.7 g/dL (3.2-5.2); Albumin/Globulin Ratio 1.7 (1-3); Calcium 8.5 mg/dL (8.6-10.3); Creatinine, Serum 1.32 mg/dL (0.67-1.17); Globulin 2.2 g/dL (2-4); Magnesium 1.7 mg/dL (1.9-2.7); Phosphorus 2.9 mg/dL (2.5-5.0); Potassium 4.5 mmol/L (3.5-5.0); Total Bilirubin 0.4 mg/dL (0.2-1.0); Total Protein 5.9 g/dL (6.4-8.9); eGFR CKD-EPI 58.4 (>60)
[2024-08-14] MEDS: Magnesium Sulfate 2 gm BAG 2 GM/50 ML BAG IVPB ONE (11:32)
[2024-08-14] MEDS: Magnesium Sulfate IV 1GM/100ML 1 GM/100 ML BAG IV ONE (14:34)
[2024-08-15] MEDS: NS 0.9% 1000 ml BAG 1,000 ML IV SCH (05:04)
[2024-08-15 05:57] LABS: ABS Basophils 0.1 10^3/uL (0.0-0.1); ABS Lymphocytes 1.9 10^3/uL (1.0-4.8); ABS Monocytes 0.7 10^3/uL (0.0-1.1); Eosinophil % 0.2 %; Hematocrit 40.6 % (38-53); Hemoglobin 13.9 g/dL (13.2-16.3); Lymphocyte % 20.1 %; Mean Corpuscular Hemoglobin 30.9 pg (27-33); Mean Corpuscular Hgb Conc 34.3 g/dL (31-36); Mean Corpuscular Volume 90.2 fL (80-97); Mean Platelet Volume 9.3 fL (7.5-11.2); Platelet Count 129 10^3/uL (150-450); Red Blood Count 4.51 10^6/uL (4.06-5.63); Red Cell Distribution Width 15.1 % (12-17); White Blood Count 9.7 10^3/uL (3.6-10.2)
[2024-08-15 06:40] LABS: Calcium 8.1 mg/dL (8.6-10.3); Creatinine, Serum 1.08 mg/dL (0.67-1.17); Potassium 4.3 mmol/L (3.5-5.0); eGFR CKD-EPI 74.3 (>60)
[2024-08-15] MEDS: NF: IPRATROPIUM BR (NF)0.03% NASAL 1 SPRAY BTL BOTH NARES SCH (08:22)
[2024-08-15] MEDS ORDERED: methylPREDNISolone SOD SUCC 125 mg 2 ML VIAL ONE (10:18)
[2024-08-15] MEDS: methylPREDNISolone SOD SUCC 125 mg 2 ML VIAL IV ONE (10:54)
[2024-08-15] MEDS ORDERED: ceFAZolin 2 GM PREMIX 2 GM/50 ML BAG ONE (10:59)
[2024-08-15] MEDS ORDERED: Iohexol 300 (CONTRAST) 10 ML SDV ONE ×2 (11:02→17:00)
[2024-08-15] MEDS ORDERED: Lidocaine 1% VIAL 10 MG/ML 30 ML VIAL ONE ×2 (11:02→17:00)
[2024-08-15] MEDS: methylPREDNISolone SOD SUCC 40 mg/ml 1 ml VIAL IV ONE (16:35)
[2024-08-15] MEDS: ceFAZolin 2 GM PREMIX 2 GM/50 ML BAG IV ONE (16:55)
[2024-08-15] MEDS ORDERED: Propofol 10 MG/ML 20 ML BTL ONE (18:06)
[2024-08-15] MEDS: Fluticasone NASAL SPRAY 50MCG 16 gm SPRAY BTL BOTH NARES SCH (18:30)
[2024-08-15] MEDS ORDERED: ceFAZolin VIAL 1 GM in NS 0.9% 50 ML 50 ML IVPB SCH (20:00)
[2024-08-15] MEDS: ceFAZolin 1 GM in Dextrose 1 GM/50 ML BAG IVPB SCH (21:31)
[2024-08-16 06:21] LABS: Hematocrit 41.8 % (38-53); Mean Corpuscular Hemoglobin 30.3 pg (27-33); Mean Corpuscular Hgb Conc 33.6 g/dL (31-36); Mean Corpuscular Volume 90.3 fL (80-97); Mean Platelet Volume 9.6 fL (7.5-11.2); Platelet Count 144 10^3/uL (150-450); Red Blood Count 4.63 10^6/uL (4.06-5.63); Red Cell Distribution Width 14.7 % (12-17); White Blood Count 15.1 10^3/uL (3.6-10.2)
[2024-08-16 06:40] LABS: Creatinine, Serum 1.31 mg/dL (0.67-1.17); Magnesium 1.9 mg/dL (1.9-2.7); Potassium 4.2 mmol/L (3.5-5.0); eGFR CKD-EPI 58.9 (>60)
[2024-08-17 07:05] LABS: ABS Basophils 0.1 10^3/uL (0.0-0.1); ABS Lymphocytes 2.2 10^3/uL (1.0-4.8); ABS Monocytes 0.8 10^3/uL (0.0-1.1); ABS Neutrophils 5.9 10^3/uL (1.5-7.6); ABS Nucleated RBC 0.01 10^3/ul; Eosinophil % 0.3 %; Hemoglobin 13.4 g/dL (13.2-16.3); Lymphocyte % 24.7 %; Mean Corpuscular Hemoglobin 30.9 pg (27-33); Mean Corpuscular Hgb Conc 34.4 g/dL (31-36); Mean Corpuscular Volume 89.7 fL (80-97); Mean Platelet Volume 9.4 fL (7.5-11.2); Nucleated Red Blood Cells % 0.1 %/100WBC (0.0-0.8); Platelet Count 106 10^3/uL (150-450); Red Blood Count 4.34 10^6/uL (4.06-5.63); Red Cell Distribution Width 14.6 % (12-17)
[2024-08-17 07:38] LABS: Calcium 7.7 mg/dL (8.6-10.3); Creatinine, Serum 0.99 mg/dL (0.67-1.17); Magnesium 1.9 mg/dL (1.9-2.7); Potassium 4.1 mmol/L (3.5-5.0); eGFR CKD-EPI 82.5 (>60)
[2024-08-17] MEDS: Magnesium Sulfate IV 1GM/100ML 1 GM/100 ML BAG IV ONE (09:23)
[2024-08-18 06:07] LABS: Hematocrit 40.1 % (38-53); Hemoglobin 13.6 g/dL (13.2-16.3); Mean Corpuscular Hemoglobin 30.7 pg (27-33); Mean Corpuscular Hgb Conc 34.1 g/dL (31-36); Mean Platelet Volume 9.4 fL (7.5-11.2); Platelet Count 106 10^3/uL (150-450); Red Blood Count 4.45 10^6/uL (4.06-5.63); Red Cell Distribution Width 15.1 % (12-17); White Blood Count 8.6 10^3/uL (3.6-10.2)
[2024-08-18 06:28] LABS: Calcium 8.4 mg/dL (8.6-10.3); Creatinine, Serum 0.97 mg/dL (0.67-1.17); Magnesium 1.9 mg/dL (1.9-2.7); eGFR CKD-EPI 84.5 (>60)
[2024-08-18] MEDS: Magnesium Sulfate IV 1GM/100ML 1 GM/100 ML BAG IV ONE (07:58)
[2024-08-18 11:04] VITALS: BP 141/97
== END 2024-08-18 13:55 | disposition home or self-care (01) | DRG 244 ==
LOC: EDHOLD 18:31 → ED 18:31 → SUATTDRO 23:11 → MEDTELE 08-14 12:03
PROVIDERS: ADMIT Hospitalist; ATTEND Internal Medicine

== ENCOUNTER 2024-08-29 16:54 | Observation (INO) ==
[2024-08-29 17:19] LABS: ABS Basophils 0.1 10^3/uL (0.0-0.1); ABS Eosinophils 0.2 10^3/uL (0.0-0.5); ABS Lymphocytes 2.1 10^3/uL (1.0-4.8); ABS Monocytes 0.9 10^3/uL (0.0-1.1); ABS Neutrophils 5.5 10^3/uL (1.5-7.6); ABS Nucleated RBC 0.01 10^3/ul; Eosinophil % 1.7 %; Hematocrit 47.9 % (38-53); Hemoglobin 16.4 g/dL (13.2-16.3); Mean Corpuscular Hgb Conc 34.2 g/dL (31-36); Mean Corpuscular Volume 90.5 fL (80-97); Mean Platelet Volume 9.4 fL (7.5-11.2); Nucleated Red Blood Cells % 0.1 %/100WBC (0.0-0.8); Platelet Count 157 10^3/uL (150-450); Red Cell Distribution Width 15.1 % (12-17); White Blood Count 8.8 10^3/uL (3.6-10.2)
[2024-08-29 17:25] LABS: INR 1.22 (0.85-1.14)
[2024-08-29 17:44] LABS: High Sens Troponin Baseline 6 pg/mL (<20)
[2024-08-29 18:17] LABS: ALT 12 U/L (7-52); Albumin 4.2 g/dL (3.5-5.7); Albumin/Globulin Ratio 1.8 (1-3); Alkaline Phosphatase 72 U/L (35-149); Anion Gap 9 mmol/L (2-16); Blood Urea Nitrogen 26 mg/dL (6-24); CO2 Carbon Dioxide 29 mmol/L (22-32); Calcium 9.3 mg/dL (8.6-10.3); Chloride 101 mmol/L (101-111); Creatinine, Serum 1.23 mg/dL (0.67-1.17); Globulin 2.4 g/dL (2-4); Glucose 88 mg/dL (70-100); Sodium 139 mmol/L (135-145); Total Bilirubin 0.5 mg/dL (0.2-1.0); Total Protein 6.6 g/dL (6.4-8.9); eGFR CKD-EPI 63.6 (>60)
[2024-08-29 18:32] LABS: High Sensitivity Troponin 1 Hr 4 pg/mL (<20)
[2024-08-29] MEDS: NS 0.9% 1000 ml BAG 1,000 ML IV ONE (18:33)
[2024-08-29] MEDS: Iohexol 350 (CONTRAST) 500 ML MDV IV ONE (18:50)
[2024-08-29] MEDS: Lactated Ringers 1000 ml BAG 1,000 ML IV ONE (20:01)
[2024-08-29] MEDS: Heparin DRIP 25,000 UNITS BAG 25,000 UNITS/250 ML BAG IV SCH (21:08)
[2024-08-29] MEDS: Heparin 5000 UNITS/ML 1 mL VIAL IV SCH (21:09)
[2024-08-29] MEDS ORDERED: Sulfur Hexaflouride MICROSPHR 25 MG VIAL IV PRN (21:19)
[2024-08-29 23:53] LABS: Potassium Redraw 4.3 mmol/L (3.5-5.0)
[2024-08-30 03:39] LABS: ABS Eosinophils 0.1 10^3/uL (0.0-0.5); ABS Lymphocytes 2.2 10^3/uL (1.0-4.8); ABS Monocytes 0.5 10^3/uL (0.0-1.1); ABS Neutrophils 4.3 10^3/uL (1.5-7.6); Eosinophil % 1.8 %; Hematocrit 43.2 % (38-53); Hemoglobin 14.6 g/dL (13.2-16.3); Lymphocyte % 31.1 %; Mean Corpuscular Hemoglobin 30.4 pg (27-33); Mean Corpuscular Hgb Conc 33.8 g/dL (31-36); Mean Platelet Volume 9.6 fL (7.5-11.2); Platelet Count 123 10^3/uL (150-450); Red Blood Count 4.79 10^6/uL (4.06-5.63); Red Cell Distribution Width 14.5 % (12-17); White Blood Count 7.2 10^3/uL (3.6-10.2)
[2024-08-30] MEDS ORDERED: NF: IPRATROPIUM BR (NF)0.03% NASAL 1 SPRAY BTL BOTH NARES PRN (03:49)
[2024-08-30 06:16] LABS: Calcium 8.4 mg/dL (8.6-10.3); Creatinine, Serum 1.14 mg/dL (0.67-1.17); eGFR CKD-EPI 69.6 (>60)
[2024-08-30 13:38] VITALS: BP 102/83
== END 2024-08-30 16:15 | disposition home or self-care (01) ==
LOC: EDHOLD 16:54 → ED 16:54 → SUATTDRO 21:03 → MEDTELE 23:28
PROVIDERS: ADMIT Internal Medicine; ATTEND Hospitalist